=== PATIENT | female | born 1940 | race Asian ===

== ENCOUNTER 2017-07-04 11:03 | Inpatient (IN) | payer OTHER ==
[~2017-07-04] VITALS: Ht 157.5 cm; Wt 62.8 kg
[~2017-07-04 11:03] MED LIST: AML5T PO; ASCOCRY2 OR; ASPI81CH58 PO; CAR3125T OR; FER325T PO; INSLANTI SC; INSUINJ49 SC; LOVA20TA4 PO; OMEG100078 PO; POTA10TA51 PO; TRAM50TA2 PO
[2017-07-04] MEDS ORDERED: MORPHINE SULFATE 4 MG/ML SYR/VIAL IV ONE (11:15)
[2017-07-04] MEDS ORDERED: ONDANSETRON HCL 4 MG/2 ML VIAL IV ONE (11:15)
[2017-07-04 11:43] LABS: Basophils # (auto) 0.1 uL; Eosinophils # (auto) 0.3 uL; Mean Corpuscular Volume 108.6 fL (80.0-100.0); Neutrophils % (auto) 85.6 % (37.0-80.0)
[2017-07-04 11:47] LABS: Basophils % (auto) 0.4 % (0.0-2.0); Eosinophils % (auto) 1.7 % (0.0-7.0); Hematocrit 19.1 % (36.0-46.0); Lymphocytes # (auto) 1.9 uL; Lymphocytes % (auto) 9.4 % (10.0-50.0); Mean Corpuscular Hemoglobin 34.2 pg (28.0-32.0); Mean Corpuscular Hgb Conc. 31.5 g/dL (32.0-36.0); Monocytes # (auto) 0.6 uL; Monocytes % (auto) 2.9 % (0.0-12.0); Neutrophils # (auto) 17.6 uL; Platelet Count (auto) 290 10^3/uL (140-450); Red Blood Cells 1.76 10^6/uL (4.0-5.20); White Blood Cell 20.6 10^3/uL (4.4-10.8)
[2017-07-04 11:58] LABS: INR 0.88 (0.9-1.15); Prothrombin Time 9.6 sec (9.37-12.3)
[2017-07-04 12:12] LABS: Albumin 2.9 g/dL (3.4-5.0); BUN/Creatinine Ratio 15.8; Bilirubin, Total 0.5 mg/dL (0.2-1.0); Calcium 8.4 mg/dL (8.5-10.1); Magnesium 3.2 mg/dL (1.6-2.6); Potassium 5.5 mmol/L (3.5-5.1); Total Protein 7.8 g/dL (6.4-8.2)
[2017-07-04] MEDS ORDERED: FUROSEMIDE 40 MG/4 ML VIAL IV ONE (12:15)
[2017-07-04] MEDS ORDERED: ZOLPIDEM TARTRATE 5 MG TAB PO PRN (13:30)
[2017-07-04] MEDS ORDERED: ONDANSETRON HCL 4 MG/2 ML VIAL IV PRN (13:30)
[2017-07-04] MEDS ORDERED: MORPHINE SULFATE 4 MG/ML SYR/VIAL IV PRN ×2 (13:30)
[2017-07-04] MEDS ORDERED: LORazepam 0.5 MG TAB PO PRN (13:30)
[2017-07-04] MEDS ORDERED: DEXTROSE (50%) 50ML SYRG IV PRN (13:30)
[2017-07-04] MEDS ORDERED: ALUM & MAG HYDROX-SIMETH LIQ(MAALOX) 30 ML PO ONE (13:30)
[2017-07-04] MEDS ORDERED: NITROGLYCERIN 0.4 MG SL TAB SL PRN ×2 (13:30)
[2017-07-04] MEDS ORDERED: traMADol HCL 50 MG TAB PO PRN ×2 (13:30→13:45)
[2017-07-04] MEDS: SODIUM CHLOR 0.9% PF (SALINE LOCK) 10ML VIAL IV SCH ×2 (13:44→22:45)
[2017-07-04] MEDS ORDERED: cefTRIAXone 1GM/10ml IVPUSH 10 ML IV ONE (13:45)
[2017-07-04] MEDS ORDERED: ACETYLCYSTEINE ORAL for CIN 20%(200MG/ML) 4ML PO ONE (13:45)
[2017-07-04] MEDS ORDERED: amLODIPine BESYLATE 5 MG TAB PO ONE (13:45)
[2017-07-04 14:45] VITALS: BP 155/62
[2017-07-04 15:00] VITALS: BP 163/65
[2017-07-04 15:07] LABS: Urine Bacteria FEW /hpf (None Seen); Urine Blood Negative /uL (Negative); Urine Specific Gravity 1.008 (1.001-1.035); Urine WBC 1 /hpf (0 - 5)
[2017-07-04 16:45] VITALS: BP 171/72
[2017-07-04 17:10] VITALS: BP 172/73
[2017-07-04] MEDS: ACCU-CHEK COMFORT CURVE STRIP VI SCH ×2 (17:19→22:24)
[2017-07-04] MEDS: INSULIN 70/30 1unit/0.01ml Susp (100units/ml) SC SCH (17:19)
[2017-07-04] MEDS: InsuLIN REG 1unit/0.01ml Soln (100units/ml) SC SCH ×2 (17:19→22:48)
[2017-07-04 17:22] VITALS: BP 177/73
[2017-07-04 17:33] VITALS: BP 176/77
[2017-07-04] MEDS: Boost Glucose Control 8 Ounces PO SCH (18:24)
[2017-07-04] MEDS: cloNIDine HCL 0.1 MG TAB PO PRN (18:41)
[2017-07-04 21:30] LABS: Hemoglobin 9.4 g/dL (12.2-16.2)
[2017-07-04] MEDS: CARVEDILOL 3.125 MG TAB PO SCH (22:47)
[2017-07-04] MEDS: ATORVASTATIN 20 MG TAB PO SCH (22:48)
[2017-07-04] MEDS: ACETYLCYSTEINE ORAL for CIN 20%(200MG/ML) 4ML PO SCH (22:48)
[2017-07-05 04:22] VITALS: BP 153/59
[2017-07-05 04:26] VITALS: BP 153/59
[2017-07-05] MEDS: ACCU-CHEK COMFORT CURVE STRIP VI SCH ×4 (05:45→22:01)
[2017-07-05] MEDS: SODIUM CHLOR 0.9% PF (SALINE LOCK) 10ML VIAL IV SCH ×3 (05:45→22:00)
[2017-07-05 05:56] LABS: Basophils # (auto) 0.1 uL; Basophils % (auto) 0.5 % (0.0-2.0); Eosinophils # (auto) 0.2 uL; Eosinophils % (auto) 1.6 % (0.0-7.0); Hematocrit 26.8 % (36.0-46.0); Hemoglobin 8.9 g/dL (12.2-16.2); Lymphocytes # (auto) 1.6 uL; Lymphocytes % (auto) 10.8 % (10.0-50.0); Mean Corpuscular Hemoglobin 32.2 pg (28.0-32.0); Mean Corpuscular Hgb Conc. 33.3 g/dL (32.0-36.0); Mean Corpuscular Volume 96.7 fL (80.0-100.0); Monocytes # (auto) 0.8 uL; Monocytes % (auto) 5.3 % (0.0-12.0); Neutrophils # (auto) 11.9 uL; Neutrophils % (auto) 81.8 % (37.0-80.0); Platelet Count (auto) 221 10^3/uL (140-450); Red Blood Cells 2.78 10^6/uL (4.0-5.20); White Blood Cell 14.5 10^3/uL (4.4-10.8)
[2017-07-05 05:59] LABS: Red Cell Distribution Width 20.4 % (11.8-14.3)
[2017-07-05 06:19] LABS: Albumin 2.5 g/dL (3.4-5.0); BUN/Creatinine Ratio 16.9; Bilirubin, Total 0.6 mg/dL (0.2-1.0); Calcium 8.1 mg/dL (8.5-10.1); Magnesium 2.9 mg/dL (1.6-2.6); Phosphorus 3.6 mg/dL (2.5-4.90); Potassium 5.2 mmol/L (3.5-5.1); Total Protein 7.1 g/dL (6.4-8.2)
[2017-07-05] MEDS: INSULIN LANTUS (GLARGINE) 1 /0.01ml (100units/ml) SC SCH (06:19)
[2017-07-05] MEDS: INSULIN 70/30 1unit/0.01ml Susp (100units/ml) SC SCH ×3 (06:19→17:00)
[2017-07-05] MEDS: InsuLIN REG 1unit/0.01ml Soln (100units/ml) SC SCH ×4 (06:19→22:01)
[2017-07-05] MEDS ORDERED: cefTRIAXone 1GM/10ml IVPUSH 10 ML IV SCH (09:00)
[2017-07-05] MEDS: Boost Glucose Control 8 Ounces PO SCH ×3 (10:11→17:44)
[2017-07-05] MEDS: FERROUS SULFATE 325 MG TAB PO SCH (10:12)
[2017-07-05] MEDS: DOCUSATE SOD 100 MG CAP PO SCH (10:13)
[2017-07-05] MEDS: CARVEDILOL 3.125 MG TAB PO SCH (10:13)
[2017-07-05] MEDS: ASCORBIC ACID 500 MG TAB PO SCH (10:13)
[2017-07-05] MEDS: amLODIPine BESYLATE 5 MG TAB PO SCH (10:14)
[2017-07-05] MEDS: ACETYLCYSTEINE ORAL for CIN 20%(200MG/ML) 4ML PO SCH (11:12)
[2017-07-05] MEDS: cloNIDine HCL 0.1 MG TAB PO PRN (11:39)
[2017-07-05] MEDS ORDERED: EPOETIN ALFA 10,000 UNIT/1 ML VIAL SC ONE (12:15)
[2017-07-05 12:19] VITALS: BP 168/67
[2017-07-05 16:01] VITALS: BP 141/55
[2017-07-05 21:36] VITALS: BP 157/67
[2017-07-05] MEDS: CARVEDILOL 12.5 MG TAB PO SCH (22:00)
[2017-07-05] MEDS: ATORVASTATIN 20 MG TAB PO SCH (22:01)
[2017-07-06] MEDS: cloNIDine HCL 0.1 MG TAB PO PRN (04:27)
[2017-07-06] MEDS: ACETAMINOPHEN 325 MG TAB PO PRN ×3 (04:30→22:21)
[2017-07-06 05:01] VITALS: BP 167/71
[2017-07-06 05:54] LABS: Basophils # (auto) 0.1 uL; Basophils % (auto) 0.6 % (0.0-2.0); Eosinophils # (auto) 0.4 uL; Eosinophils % (auto) 3.9 % (0.0-7.0); Hematocrit 26.6 % (36.0-46.0); Hemoglobin 8.9 g/dL (12.2-16.2); Lymphocytes # (auto) 1.5 uL; Lymphocytes % (auto) 14.1 % (10.0-50.0); Mean Corpuscular Hemoglobin 32.9 pg (28.0-32.0); Mean Corpuscular Hgb Conc. 33.6 g/dL (32.0-36.0); Mean Corpuscular Volume 97.9 fL (80.0-100.0); Monocytes # (auto) 0.7 uL; Monocytes % (auto) 6.5 % (0.0-12.0); Neutrophils # (auto) 7.9 uL; Neutrophils % (auto) 74.9 % (37.0-80.0); Platelet Count (auto) 197 10^3/uL (140-450); Red Blood Cells 2.71 10^6/uL (4.0-5.20); White Blood Cell 10.6 10^3/uL (4.4-10.8)
[2017-07-06 05:57] LABS: Red Cell Distribution Width 20.7 % (11.8-14.3)
[2017-07-06] MEDS: SODIUM CHLOR 0.9% PF (SALINE LOCK) 10ML VIAL IV SCH ×3 (06:25→22:00)
[2017-07-06] MEDS: InsuLIN REG 1unit/0.01ml Soln (100units/ml) SC SCH ×4 (06:25→22:17)
[2017-07-06] MEDS: ACCU-CHEK COMFORT CURVE STRIP VI SCH ×4 (06:26→22:17)
[2017-07-06] MEDS: INSULIN 70/30 1unit/0.01ml Susp (100units/ml) SC SCH ×3 (06:28→17:00)
[2017-07-06 06:29] LABS: BUN/Creatinine Ratio 17.5; Calcium 8.3 mg/dL (8.5-10.1); Potassium 5.1 mmol/L (3.5-5.1)
[2017-07-06] MEDS: INSULIN LANTUS (GLARGINE) 1 /0.01ml (100units/ml) SC SCH (06:36)
[2017-07-06] MEDS: Boost Glucose Control 8 Ounces PO SCH ×3 (08:06→18:20)
[2017-07-06 08:23] VITALS: BP 152/67
[2017-07-06] MEDS: ASCORBIC ACID 500 MG TAB PO SCH (10:14)
[2017-07-06] MEDS: DOCUSATE SOD 100 MG CAP PO SCH (10:14)
[2017-07-06] MEDS: FERROUS SULFATE 325 MG TAB PO SCH (10:14)
[2017-07-06] MEDS: CARVEDILOL 12.5 MG TAB PO SCH ×2 (10:16→22:16)
[2017-07-06] MEDS: amLODIPine BESYLATE 5 MG TAB PO SCH (10:17)
[2017-07-06 11:18] VITALS: BP 160/62
[2017-07-06] MEDS ORDERED: EPOETIN ALFA 10,000 UNIT/1 ML VIAL SC ONE (14:15)
[2017-07-06 14:24] LABS: Basophils # (auto) 0.1 uL; Eosinophils # (auto) 0.4 uL; Monocytes # (auto) 0.7 uL; Neutrophils # (auto) 7.6 uL; White Blood Cell 10.1 10^3/uL (4.4-10.8)
[2017-07-06 14:27] LABS: Basophils % (auto) 0.7 % (0.0-2.0); Eosinophils % (auto) 3.7 % (0.0-7.0); Hematocrit 23.6 % (36.0-46.0); Lymphocytes # (auto) 1.3 uL; Mean Corpuscular Hemoglobin 33.3 pg (28.0-32.0); Mean Corpuscular Hgb Conc. 33.8 g/dL (32.0-36.0); Mean Corpuscular Volume 98.4 fL (80.0-100.0); Monocytes % (auto) 6.8 % (0.0-12.0); Neutrophils % (auto) 75.8 % (37.0-80.0); Platelet Count (auto) 181 10^3/uL (140-450)
[2017-07-06 14:32] LABS: Red Cell Distribution Width 20.8 % (11.8-14.3)
[2017-07-06] MEDS ORDERED: EPOETIN ALFA 10,000 UNIT/1 ML VIAL IV ONE ×2 (15:45→18:15)
[2017-07-06 17:31] VITALS: BP 153/64
[2017-07-06] MEDS ORDERED: FER325T PO (17:45)
[2017-07-06] MEDS ORDERED: HYDR25TA35 PO (17:45)
[2017-07-06] MEDS ORDERED: ATOR20TA50 PO (17:45)
[2017-07-06] MEDS ORDERED: OMEP20TA PO (17:45)
[2017-07-06] MEDS ORDERED: CAR125T PO (17:45)
[2017-07-06 22:00] VITALS: BP 169/66
[2017-07-06] MEDS: ATORVASTATIN 20 MG TAB PO SCH (22:14)
[2017-07-06] MEDS: hydrALAZINE HCL 25 MG TAB PO SCH (22:15)
[2017-07-07 04:46] VITALS: BP 143/63
[2017-07-07] MEDS: SODIUM CHLOR 0.9% PF (SALINE LOCK) 10ML VIAL IV SCH ×2 (06:00→14:00)
[2017-07-07] MEDS: INSULIN LANTUS (GLARGINE) 1 /0.01ml (100units/ml) SC SCH (06:48)
[2017-07-07] MEDS: InsuLIN REG 1unit/0.01ml Soln (100units/ml) SC SCH ×3 (06:48→17:00)
[2017-07-07] MEDS: INSULIN 70/30 1unit/0.01ml Susp (100units/ml) SC SCH ×3 (06:48→17:00)
[2017-07-07] MEDS: ACCU-CHEK COMFORT CURVE STRIP VI SCH ×3 (06:48→17:00)
[2017-07-07 08:00] VITALS: BP 166/69
[2017-07-07] MEDS ORDERED: EPOETIN ALFA 10,000 UNIT/1 ML VIAL SC ONE (08:00)
[2017-07-07] MEDS: Boost Glucose Control 8 Ounces PO SCH (08:57)
[2017-07-07] MEDS: CARVEDILOL 12.5 MG TAB PO SCH (09:32)
[2017-07-07] MEDS: ACETAMINOPHEN 325 MG TAB PO PRN (09:32)
[2017-07-07] MEDS: hydrALAZINE HCL 25 MG TAB PO SCH (09:38)
[2017-07-07] MEDS: amLODIPine BESYLATE 5 MG TAB PO SCH (09:38)
[2017-07-07] MEDS: FERROUS SULFATE 325 MG TAB PO SCH (10:19)
[2017-07-07] MEDS: ASCORBIC ACID 500 MG TAB PO SCH (10:19)
[2017-07-07] MEDS: DOCUSATE SOD 100 MG CAP PO SCH (10:20)
[2017-07-07 10:29] LABS: Hepatitis B Surface Antibody Negative
[2017-07-07] MEDS: cloNIDine HCL 0.1 MG TAB PO PRN (10:40)
[2017-07-07 10:48] LABS: Hepatitis B Surface Antigen Negative (Negative)
[2017-07-07 11:02] LABS: Hepatitis C Antibody Negative (Negative)
[2017-07-07] MEDS ORDERED: Boost Glucose Control 8 Ounces PO SCH (12:00)
[2017-07-07 12:54] VITALS: BP 156/55
[2017-07-07 13:00] VITALS: BP 166/65
[2017-07-07 13:14] VITALS: BP 156/55
[2017-07-07 16:54] VITALS: BP 143/62
[2017-07-07] MEDS ORDERED: Suplena 8 ounce PO SCH (18:00)
== END 2017-07-07 18:55 | disposition home health service (06) | DRG 280 ==
LOC: ER 11:03 → EDBD 11:03 → TELE 11:04 → DOU IN ICU 07-05 03:23 → EAST 07-05 18:41 → TELE-EAST 07-06 06:00
PROVIDERS: ADMIT Internal Medicine; ATTEND Hospitalist
PROC: 30233N1 Transfusion of Nonautologous Red Blood Cells into Peripheral Vein, Percutaneous Approach (ICD-10-PCS; principal; 2017-07-04)
DX: I21.4 Non-ST elevation (NSTEMI) myocardial infarction (principal); N18.6 End stage renal disease; E44.0 Moderate protein-calorie malnutrition; I13.2 Hypertensive heart and chronic kidney disease with heart failure and with stage 5 chronic kidney disease, or end stage renal disease; I50.33 Acute on chronic diastolic (congestive) heart failure; E11.21 Type 2 diabetes mellitus with diabetic nephropathy; E87.5 Hyperkalemia; E78.5 Hyperlipidemia, unspecified; E11.22 Type 2 diabetes mellitus with diabetic chronic kidney disease; E83.41 Hypermagnesemia; E83.51 Hypocalcemia; I25.10 Atherosclerotic heart disease of native coronary artery without angina pectoris; I25.2 Old myocardial infarction; J44.9 Chronic obstructive pulmonary disease, unspecified; K21.9 Gastro-esophageal reflux disease without esophagitis; Z82.49 Family history of ischemic heart disease and other diseases of the circulatory system; Z83.3 Family history of diabetes mellitus; Z86.73 Personal history of transient ischemic attack (TIA), and cerebral infarction without residual deficits; D63.1 Anemia in chronic kidney disease; Z88.5 Allergy status to narcotic agent; Z88.2 Allergy status to sulfonamides; Z90.49 Acquired absence of other specified parts of digestive tract; Z68.25 Body mass index [BMI] 25.0-25.9, adult
CPT/HCPCS: 36415; 51702; 71045; 80048; 80053; 80061; 81001; 82962; 83010; 83036; 83615; 83735; 83880; 84100; 84484; 85014; 85018; 85025; 85610; 85730; 86706; 86803; 86850; 86880; 86900; 86901; 86920; 87081; 87086; 87340; 93005; 93306; 96361; 96374; 96375; 97116; 97530; 99291; J0885; J1815; J2405

== ENCOUNTER 2017-12-25 15:44 | Emergency (ER) | payer OTHER ==
[~2017-12-25] VITALS: Ht 157.5 cm; Wt 59.9 kg
[~2017-12-25 15:44] MED LIST changes: +ALLO100T PO; -ASCOCRY2 OR; +ATOR20TA50 PO; +CAR125T PO; -CAR3125T OR; +CARV6.2551 PO; +CHOL1TAB42 PO; +FURO20TA PO; +GABA300C10 PO; +HYDR-4296 PO; -INSLANTI SC; +INSLISPI SC; -INSUINJ49 SC; -LOVA20TA4 PO; +LOVA40TA72 PO; +MIN25T PO; -OMEG100078 PO; +OMEP20TA PO; +ONDA4TAB5 PO; -POTA10TA51 PO; -TRAM50TA2 PO
[2017-12-25 16:50] LABS: Basophils # (auto) 0.1 uL; Basophils % (auto) 0.9 % (0.0-2.0); Eosinophils # (auto) 0.3 uL; Eosinophils % (auto) 2.4 % (0.0-7.0); Hematocrit 35.6 % (36.0-46.0); Hemoglobin 11.1 g/dL (12.2-16.2); Lymphocytes # (auto) 1.8 uL; Lymphocytes % (auto) 14.5 % (10.0-50.0); Mean Corpuscular Hemoglobin 29.8 pg (28.0-32.0); Mean Corpuscular Hgb Conc. 31.3 g/dL (32.0-36.0); Mean Corpuscular Volume 95.1 fL (80.0-100.0); Monocytes # (auto) 0.6 uL; Monocytes % (auto) 4.6 % (0.0-12.0); Neutrophils # (auto) 9.4 uL; Neutrophils % (auto) 77.6 % (37.0-80.0); Platelet Count (auto) 345 10^3/uL (140-450); Red Blood Cells 3.74 10^6/uL (4.0-5.20); Red Cell Distribution Width 16.1 % (11.8-14.3); White Blood Cell 12.1 10^3/uL (4.4-10.8)
[2017-12-25 17:27] LABS: Alanine Aminotransferase 16 U/L (13-56); Albumin 3.4 g/dL (3.4-5.0); Alkaline Phosphatase 137 U/L (45-117); Anion Gap 4 (5-15); Aspartate Aminotransferase 15 U/L (15-37); BUN/Creatinine Ratio 9.3; Bilirubin, Total 0.4 mg/dL (0.2-1.0); Blood Urea Nitrogen 50 mg/dL (7-18); Calcium 8.9 mg/dL (8.5-10.1); Carbon Dioxide 28 mmol/L (21-32); Chloride 104 mmol/L (98-107); GFR African American 10 mL/min; GFR Non-African American 8 mL/min; Glucose 135 mg/dL (74-106); Magnesium 3.1 mg/dL (1.6-2.6); Potassium 3.6 mmol/L (3.5-5.1); Sodium 136 mmol/L (136-145); Total Protein 7.6 g/dL (6.4-8.2)
[2017-12-25 20:11] VITALS: BP 135/61
[2017-12-25] MEDS ORDERED: HYDROcodone-ACET 5/325MG TAB PO ONE (20:15)
== END 2017-12-25 22:41 | disposition home or self-care (01) ==
LOC: ER 15:44
DX: S83.92XA Sprain of unspecified site of left knee, initial encounter (principal); S00.83XA Contusion of other part of head, initial encounter; S90.32XA Contusion of left foot, initial encounter; E11.22 Type 2 diabetes mellitus with diabetic chronic kidney disease; I13.2 Hypertensive heart and chronic kidney disease with heart failure and with stage 5 chronic kidney disease, or end stage renal disease; N18.6 End stage renal disease; J44.9 Chronic obstructive pulmonary disease, unspecified; K21.9 Gastro-esophageal reflux disease without esophagitis; E78.5 Hyperlipidemia, unspecified; I25.2 Old myocardial infarction; Z90.49 Acquired absence of other specified parts of digestive tract; Z99.2 Dependence on renal dialysis; Z79.4 Long term (current) use of insulin; W19.XXXA Unspecified fall, initial encounter; Y93.89 Activity, other specified; Y92.098 Other place in other non-institutional residence as the place of occurrence of the external cause; Y99.8 Other external cause status
CPT/HCPCS: 36415; 70450; 70486; 73562; 80053; 83735; 84484; 85025; 93005

== ENCOUNTER 2018-09-27 13:46 | Emergency (ER) | payer OTHER ==
[~2018-09-27] VITALS: Ht 152.4 cm; Wt 72.6 kg
[2018-09-27 14:50] LABS: Basophils # (auto) 0.1 uL; Eosinophils # (auto) 0.4 uL; Lymphocytes # (auto) 1.4 uL; Mean Corpuscular Hgb Conc. 30.7 g/dL (32.0-36.0); Nucleated Red Blood Cells % 0.1 %; White Blood Cell 10.3 10^3/uL (4.4-10.8)
[2018-09-27 14:53] LABS: Basophils % (auto) 0.5 % (0.0-2.0); Eosinophils % (auto) 3.7 % (0.0-7.0); Hematocrit 26.1 % (36.0-46.0); Lymphocytes % (auto) 14.1 % (10.0-50.0); Mean Corpuscular Hemoglobin 29.4 pg (28.0-32.0); Mean Corpuscular Volume 95.7 fL (80.0-100.0); Monocytes # (auto) 0.5 uL; Monocytes % (auto) 4.6 % (0.0-12.0); Neutrophils # (auto) 7.9 uL; Neutrophils % (auto) 77.1 % (37.0-80.0); Platelet Count (auto) 257 10^3/uL (140-450); Red Blood Cells 2.73 10^6/uL (4.0-5.20); Red Cell Distribution Width 19.4 % (11.8-14.3)
[2018-09-27 15:05] LABS: BUN/Creatinine Ratio 8.7; Magnesium 2.9 mg/dL (1.6-2.6); Potassium 3.7 mmol/L (3.5-5.1)
[2018-09-27 15:10] LABS: Bilirubin, Total 0.6 mg/dL (0.2-1.0); Total Protein 6.5 g/dL (6.4-8.2)
[2018-09-27] MEDS ORDERED: HYDROcodone-ACET 10/325MG TAB PO ONE (20:15)
[2018-09-27 20:46] VITALS: BP 131/49
[2018-09-27] MEDS ORDERED: SODIUM CHLORIDE 0.9% 1,000 ML IV ONE ×2 (21:00)
== END 2018-09-27 21:22 | disposition short-term general hospital (02) ==
LOC: EDBD 13:46 → EDUNIT# 13:46 → ER 14:05
DX: S06.6X9A Traumatic subarachnoid hemorrhage with loss of consciousness of unspecified duration, initial encounter (principal); E11.22 Type 2 diabetes mellitus with diabetic chronic kidney disease; I13.2 Hypertensive heart and chronic kidney disease with heart failure and with stage 5 chronic kidney disease, or end stage renal disease; I50.9 Heart failure, unspecified; N18.6 End stage renal disease; K21.9 Gastro-esophageal reflux disease without esophagitis; E78.5 Hyperlipidemia, unspecified; Z90.49 Acquired absence of other specified parts of digestive tract; Z99.2 Dependence on renal dialysis; Z79.4 Long term (current) use of insulin; W18.31XA Fall on same level due to stepping on an object, initial encounter; Y93.89 Activity, other specified; Y92.89 Other specified places as the place of occurrence of the external cause; Y99.8 Other external cause status
CPT/HCPCS: 36415; 70450; 72125; 80053; 82962; 83735; 84484; 85025; 93005; 99291; J7030

== ENCOUNTER 2020-02-28 12:19 | Emergency (ER) | payer OTHER ==
[~2020-02-28] VITALS: Ht 157.5 cm; Wt 68.0 kg
[2020-02-28 12:19] VITALS: BP 141/71
[~2020-02-28 12:19] MED LIST changes: +FURO1TAB33 PO; -FURO20TA PO; +ONDA-144 PO; -ONDA4TAB5 PO
[2020-02-28] MEDS ORDERED: ACETAMINOPHEN 325 MG TAB PO ONE (14:15)
== END 2020-02-28 14:18 | disposition home or self-care (01) ==
LOC: EDBD 12:19 → ER 12:19
DX: S46.911A Strain of unspecified muscle, fascia and tendon at shoulder and upper arm level, right arm, initial encounter (principal); M19.011 Primary osteoarthritis, right shoulder; I13.2 Hypertensive heart and chronic kidney disease with heart failure and with stage 5 chronic kidney disease, or end stage renal disease; I50.9 Heart failure, unspecified; E11.22 Type 2 diabetes mellitus with diabetic chronic kidney disease; N18.6 End stage renal disease; K21.9 Gastro-esophageal reflux disease without esophagitis; Z90.49 Acquired absence of other specified parts of digestive tract; Z79.82 Long term (current) use of aspirin; Z79.899 Other long term (current) drug therapy; Z88.2 Allergy status to sulfonamides; Z88.5 Allergy status to narcotic agent; W19.XXXA Unspecified fall, initial encounter; Y93.89 Activity, other specified; Y92.89 Other specified places as the place of occurrence of the external cause; Y99.8 Other external cause status
CPT/HCPCS: 73030

== ENCOUNTER 2020-02-28 14:56 | Inpatient (IN) | payer OTHER ==
[~2020-02-28] VITALS: Ht 157.5 cm; Wt 59.6 kg
[2020-02-28] MEDS ORDERED: SODIUM CHLORIDE 0.9% 500 ML IV ONE (15:45)
[2020-02-28 17:49] LABS: Basophils # (auto) 0 10 ^3/uL (0-0.2); Eosinophils # (auto) 0 10 ^3/uL (0-0.8); Hemoglobin 7.8 g/dL (12.2-16.2); Monocytes # (auto) 0.6 10 ^3/uL (0-1.3); Neutrophils # (auto) 2.9 10 ^3/uL (1.6-8.6); Platelet Count (auto) 262 10^3/uL (140-450); White Blood Cell 4.5 10^3/uL (4.4-10.8)
[2020-02-28 17:51] LABS: Basophils % (auto) 0.6 % (0.0-2.0); Eosinophils % (auto) 0.4 % (0.0-7.0); Hematocrit 26.2 % (36.0-46.0); Lymphocytes # (auto) 0.9 10 ^3/uL (0.4-5.4); Lymphocytes % (auto) 20.6 % (10.0-50.0); Mean Corpuscular Hgb Conc. 29.8 g/dL (32.0-36.0); Monocytes % (auto) 13.3 % (0.0-12.0); Neutrophils % (auto) 65.1 % (37.0-80.0); Nucleated Red Blood Cells % 0.2 %; Red Blood Cells 3.01 10^6/uL (4.0-5.20)
[2020-02-28 17:53] LABS: Red Cell Distribution Width 21.9 % (11.8-14.3)
[2020-02-28 18:08] LABS: Albumin 2.6 g/dL (3.4-5.0); BUN/Creatinine Ratio 6.9; Calcium 6.6 mg/dL (8.5-10.1)
[2020-02-28 18:10] LABS: INR 1.1 (0.9-1.15); Partial Thromboplastin Time 44.1 sec (23.0-31.2)
[2020-02-28 18:13] LABS: Total Protein 6.4 g/dL (6.4-8.2)
[2020-02-28] MEDS ORDERED: ASPirin 81 mg TAB PO ONE (18:30)
[2020-02-28] MEDS ORDERED: PANTOPRAZOLE 40 MG/10 ML VIAL INJ IV ONE (19:45)
[2020-02-28] MEDS ORDERED: NITROGLYCERIN 0.4 MG SL TAB SL PRN (23:00)
[2020-02-28] MEDS ORDERED: MORPHINE SULF INJ 2 MG/ML SYRINGE 1ML IV PRN (23:00)
[2020-02-28] MEDS ORDERED: DOCUSATE SOD 100 MG CAP PO PRN (23:00)
[2020-02-28] MEDS ORDERED: ONDANSETRON HCL 4 MG/2 ML VIAL IV PRN (23:00)
[2020-02-28] MEDS ORDERED: DEXTROSE (50%) 50ML SYRG IV PRN (23:15)
[2020-02-29] MEDS: InsuLIN REG 1unit/0.01ml Soln (100units/ml) SC SCH ×7 (00:25→23:54)
[2020-02-29] MEDS: ACCU-CHEK COMFORT CURVE STRIP VI SCH ×7 (00:25→23:53)
[2020-02-29] MEDS: SODIUM CHLOR 0.9% PF (SALINE LOCK) 10ML VIAL/SYR IV SCH ×3 (06:18→22:15)
[2020-02-29 09:16] LABS: Basophils # (auto) 0 10 ^3/uL (0-0.2); Eosinophils # (auto) 0.1 10 ^3/uL (0-0.8); Hemoglobin 7.5 g/dL (12.2-16.2); Monocytes # (auto) 0.5 10 ^3/uL (0-1.3); Neutrophils # (auto) 3.5 10 ^3/uL (1.6-8.6)
[2020-02-29 09:18] LABS: Basophils % (auto) 0.4 % (0.0-2.0); Eosinophils % (auto) 2.7 % (0.0-7.0); Hematocrit 25.1 % (36.0-46.0); Lymphocytes # (auto) 0.8 10 ^3/uL (0.4-5.4); Lymphocytes % (auto) 15.8 % (10.0-50.0); Mean Corpuscular Hgb Conc. 29.8 g/dL (32.0-36.0); Mean Corpuscular Volume 87.4 fL (80.0-100.0); Monocytes % (auto) 10.7 % (0.0-12.0); Neutrophils % (auto) 70.4 % (37.0-80.0); Platelet Count (auto) 257 10^3/uL (140-450); Red Blood Cells 2.87 10^6/uL (4.0-5.20); White Blood Cell 4.9 10^3/uL (4.4-10.8)
[2020-02-29 09:28] LABS: Red Cell Distribution Width 21.6 % (11.8-14.3)
[2020-02-29 09:30] LABS: Potassium 3.9 mmol/L (3.5-5.1)
[2020-02-29 09:40] LABS: Albumin 2.3 g/dL (3.4-5.0); BUN/Creatinine Ratio 7.5; Bilirubin, Total 0.8 mg/dL (0.2-1.0); Calcium 6.8 mg/dL (8.5-10.1); Total Protein 5.8 g/dL (6.4-8.2)
[2020-02-29] MEDS: FAMOTIDINE 20 MG TAB PO SCH (10:02)
[2020-02-29] MEDS: ZINC SULFATE 220mg CAP or TAB PO SCH (10:02)
[2020-02-29] MEDS: ASCORBIC ACID 500 MG TAB PO SCH ×2 (10:02→22:15)
[2020-02-29] MEDS: HEPARIN SODIUM (PORCINE) 5000 UNITS/ML 1ML VIAL SC SCH ×2 (10:02→22:16)
[2020-02-29] MEDS: MULTIPLE VITAMIN TAB PO SCH (10:02)
--- NOTE | 2020-02-29 16:19 | NUR ---
Assessment Patient is a 79 year old female, who is alert and oriented. Patient cognitive abilities are intact. Patient states that she can do all ADL's and walk independently, patient recently has fallen and states that she is unstable on her feet. Patient has health history of diabetes and dialysis treatment. Patient chair time for dialysis is Tuesday,Tuesday and Tuesday. Patient is retired, she lives alone and receives halfway and social security as income. Patient has plans to return home post discharge. Patient does not have transportation for post discharge. Patient has a son who lives in [facility], who is suffering from his illness of leukemia. Patient states that she does not have a support system. Patient is receptive to receive Advance Directive forms. Discharge planning: Patient has orders for SNF, patient will benefit from physical therapy evaluation for SNF. Patient will resume dialysis therapy on Tuesday, Tuesday, and Tuesday post discharge. ENRIQUE has faxed information to [facility] for SNF transfer 03/01/2020. ENRIQUE contact Glenny at [facility], waiting for acceptance from [facility]. will provide Advance Directive forms to patient. Addendum: 02/29/20 at 1634 by MAY ROCK Amended: Links added.
[2020-02-29 16:21] VITALS: BP 152/60
[2020-02-29 17:00] VITALS: BP 152/60
--- NOTE | 2020-02-29 19:28 | NUR ---
RECEIVED PATIENT FROM DAY SHIFT RN. PATIENT RESTING IN BED. NO S/S OF DISTRESS NOTED. DENIED PAIN FOR NOW. ASSISTED PATIENT FOR BEDPAN. PATIENT TOLERATED WELL. POC INSTRUCTED AND ENCOURAGED PATIENT TO CALL FOR SWEATER DESIGNER IF NEEDED. BED IN LOWEST POSITION WITH SIDE RAILS UP X 2. CALL JOLLEY WITHIN REACH. ALARM ON. CONTINUE TO MONITOR FOR CHANGES Q1H AND PRN.
[2020-02-29 22:00] VITALS: BP 152/70
--- NOTE | 2020-02-29 23:51 | NUR ---
COVID SWAB COLLECTED AND SENT TO LAB. CONTINUE TO MONITOR.
--- NOTE | 2020-03-01 00:30 | NUR ---
ACCU-CHECK, BS 165. INSULIN GIVEN ORDERED. CONTINUE TO MONITOR.
--- NOTE | 2020-03-01 01:00 | NUR ---
RECEIVED RESULT FROM LAB, PATIENT COVID POSITIVE. CHARGE NURSE ROBIN WILKERSON. WILL TRANSFER PATIENT TO COVID UNIT. CONTINUE TO MONITOR.
--- NOTE | 2020-03-01 01:16 | NUR ---
REPORT GIVEN TO MATY AGRAWAL. PATIENT WILL GO TO 244 BED 6. CONTINUE TO MONITOR.
--- NOTE | 2020-03-01 02:14 | NUR ---
PATIENT TRANSFERRED TO [facility], HANDED OVER TO NGHIA RUTLEDGE VIA WHEELCHAIR. PATIENT TOLERATED WELL. NO S/S OF DISTRESS NOTED.
--- NOTE | 2020-03-01 02:15 | NUR ---
assumed care of this patient at this time.
[2020-03-01] MEDS: InsuLIN REG 1unit/0.01ml Soln (100units/ml) SC SCH ×5 (03:50→20:04)
[2020-03-01] MEDS: ACCU-CHEK COMFORT CURVE STRIP VI SCH ×5 (03:50→20:03)
[2020-03-01 05:00] VITALS: BP 157/68
[2020-03-01] MEDS: SODIUM CHLOR 0.9% PF (SALINE LOCK) 10ML VIAL/SYR IV SCH ×3 (05:20→21:25)
[2020-03-01] MEDS: ACETAMINOPHEN 325 MG TAB PO PRN (05:47)
--- NOTE | 2020-03-01 07:00 | NUR ---
Respiratory note: O2 CHECK: HR 73, RR 14,SPO2 98%, BS DIMINISHED. NO SIGNS OR SYMPTOMS OF RESPIRATORY DISTRESS NOTED.
--- NOTE | 2020-03-01 07:05 | NUR ---
closing note pt is on 2lnc. no s/s of pain or discomfort. no respiratory distress noted. endorsed care to day shift RN Amber .
--- NOTE | 2020-03-01 08:00 | NUR ---
ASSESSMENT NOTE PT IS ALERT ORIENTEDX4, RESTING IN BED COMFORTABLY,NO DISTRESS NOTED,OXYGEN NC 2 L SAT AT 98 %, PAIN 0/10LIS WEAKNESS NOTED, ABLE TO SELF REPOSITION AND VERBALIS HER DEMANDS, PAIN 0/10, FALL RISK PRECAUTIONS, CALL LIGHT WITHIN REACH
[2020-03-01 09:00] VITALS: BP 132/61
[2020-03-01] MEDS: cefTRIAXone 1GM/50ML D5W 50 ML IV SCH (09:59)
[2020-03-01] MEDS: ASCORBIC ACID 500 MG TAB PO SCH ×2 (09:59→21:25)
[2020-03-01] MEDS: MULTIPLE VITAMIN TAB PO SCH (09:59)
[2020-03-01] MEDS: FAMOTIDINE 20 MG TAB PO SCH (09:59)
[2020-03-01] MEDS: ZINC SULFATE 220mg CAP or TAB PO SCH (09:59)
--- NOTE | 2020-03-01 10:00 | NUR ---
DR MCKENZIE AT BEDSIDE FOLLOWING UP ON PATIENT,ASKED PT IF SHE WANT TO GO HOME OR SNF,PT STATED< I WANT TO GO HOME >
[2020-03-01] MEDS: AZITHROMYCIN 500MG/ 250ML 250 ML IV SCH (10:37)
[2020-03-01 10:49] LABS: CRP High Sensitivity 4.02 mg/dL (< 0.3)
--- NOTE | 2020-03-01 10:50 | NUR ---
IN HOUSE COVID NASAL SWAPS COLLECTED,SENT TO LAB
--- NOTE | 2020-03-01 11:30 | NUR ---
DR SAMS AT BED SIDE FOLLOWING UP ON PT, MADE AWARE THAT THE NEPHROLOGY WAS CALLED
[2020-03-01 13:00] VITALS: BP 124/58
[2020-03-01] MEDS ORDERED: SODIUM CHL 0.9% 1000 ML BAG XX ONE (14:45)
--- NOTE | 2020-03-01 14:46 | NUR ---
DIALYSIS NURSE AT BED SIDE
--- NOTE | 2020-03-01 15:40 | NUR ---
PT TOLERATED DIALYSIS WELL,NO DISTRESS NOTED,WITH ONE LITER OUTPUT
[2020-03-01] MEDS: HEPARIN SODIUM (PORCINE) 5000 UNITS/ML 1ML VIAL SC SCH ×2 (16:11→21:26)
[2020-03-01 17:00] VITALS: BP 148/70
[2020-03-01] MEDS: CHOLECALCIFEROL (VITD3) 2,000 UNIT CAP PO SCH (17:01)
[2020-03-01] MEDS: DexAMETHasone INJECTION 6 MG in D5W 5% 50 ML IV SCH (17:12)
--- NOTE | 2020-03-01 18:45 | NUR ---
PT CONTINUE STABLE, NO DISTRESS NOTED, CONTINUE MONITORING, SITTING UP EATING DINNER
[2020-03-01 21:00] VITALS: BP 151/58
[2020-03-01] MEDS ORDERED: EPOETIN ALFA 10,000 UNIT/1 ML VIAL SC ONE (21:00)
[2020-03-02] MEDS: ACCU-CHEK COMFORT CURVE STRIP VI SCH ×6 (00:06→20:10)
[2020-03-02] MEDS: InsuLIN REG 1unit/0.01ml Soln (100units/ml) SC SCH ×6 (00:08→20:03)
[2020-03-02 05:00] VITALS: BP 138/60
[2020-03-02] MEDS: HEPARIN SODIUM (PORCINE) 5000 UNITS/ML 1ML VIAL SC SCH ×3 (06:12→22:14)
[2020-03-02] MEDS: SODIUM CHLOR 0.9% PF (SALINE LOCK) 10ML VIAL/SYR IV SCH ×3 (06:13→22:12)
--- NOTE | 2020-03-02 06:52 | NUR ---
closing note pt is resting in semi fowlers with the HOB at 30 degrees. pt is on 2Lnc. o2 saturation is 98%. endorsed care to day shift RN.
[2020-03-02] MEDS: cefTRIAXone 1GM/50ML D5W 50 ML IV SCH (08:46)
[2020-03-02 09:00] VITALS: BP 157/59
[2020-03-02] MEDS: ZINC SULFATE 220mg CAP or TAB PO SCH (09:23)
[2020-03-02] MEDS: MULTIPLE VITAMIN TAB PO SCH (09:23)
[2020-03-02] MEDS: FAMOTIDINE 20 MG TAB PO SCH (09:24)
[2020-03-02] MEDS: CHOLECALCIFEROL (VITD3) 2,000 UNIT CAP PO SCH (09:24)
[2020-03-02] MEDS: ASCORBIC ACID 500 MG TAB PO SCH ×2 (09:24→22:14)
[2020-03-02] MEDS ORDERED: MINOXIDIL 2.5 MG TAB PO SCH (09:30)
--- NOTE | 2020-03-02 09:44 | NUR ---
DR MCKENZIE AT BED SIDE, PT REQUESTED RENAGEL FOR HER KIDNEY, DR MCKENZIE ASSURE PT THAT HE WILL ORDER IT
[2020-03-02] MEDS: AZITHROMYCIN 500MG/ 250ML 250 ML IV SCH (09:46)
[2020-03-02] MEDS: hydrALAZINE HCL 25 MG TAB PO SCH ×2 (09:47→22:12)
[2020-03-02] MEDS: FERROUS SULFATE 325 MG TAB PO SCH (09:47)
[2020-03-02] MEDS: ASPirin 81 mg TAB PO SCH (09:47)
[2020-03-02] MEDS: CARVEDILOL 12.5 MG TAB PO SCH ×2 (09:48→22:13)
[2020-03-02] MEDS: amLODIPine BESYLATE 5 MG TAB PO SCH (09:48)
[2020-03-02] MEDS: ALLOPURINOL 100 MG TAB PO SCH (09:49)
--- NOTE | 2020-03-02 10:30 | NUR ---
PHYSICAL THERAPY AMBULATING PT IN THE HALLWAYS, WITH FRONT WHEEL WALKER, PT TOLERATED WELL
--- NOTE | 2020-03-02 12:10 | NUR ---
DIALYSIS NURSE AT BEDSIDE WITH A DIALYSIS TREATMENT FOR 90 MINUTES
[2020-03-02] MEDS: SEVELAMER 800 MG TAB PO SCH ×2 (12:57→18:54)
[2020-03-02 13:00] VITALS: BP 117/70
[2020-03-02] MEDS: DexAMETHasone INJECTION 6 MG in D5W 5% 50 ML IV SCH (16:39)
[2020-03-02 17:00] VITALS: BP 114/37
--- NOTE | 2020-03-02 18:00 | NUR ---
PATIENT'S SON CALLED FROM [place] TO TALK TO HIS MOM
--- NOTE | 2020-03-02 18:55 | NUR ---
PT CONTINUE STABLE, CONTINUE MONITORING
[2020-03-02 22:00] VITALS: BP 116/41
--- NOTE | 2020-03-02 22:00 | NUR ---
Respiratory note: PT SEEN AND ASSESSED AT THIS TIME, NO RESPIRATORY DISTRESS NOTED. HR 67 RR 16 SP02 97% ON 1L NASAL CANNULA.
[2020-03-02] MEDS: ATORVASTATIN 20 MG TAB PO SCH (22:13)
[2020-03-02] MEDS: GABAPENTIN 300 MG CAP PO SCH (22:14)
[2020-03-03] MEDS: ACCU-CHEK COMFORT CURVE STRIP VI SCH ×6 (00:50→20:39)
[2020-03-03] MEDS: InsuLIN REG 1unit/0.01ml Soln (100units/ml) SC SCH ×6 (00:55→20:41)
[2020-03-03] MEDS: SODIUM CHLOR 0.9% PF (SALINE LOCK) 10ML VIAL/SYR IV SCH ×3 (04:56→22:04)
[2020-03-03 05:00] VITALS: BP 115/45
[2020-03-03] MEDS: HEPARIN SODIUM (PORCINE) 5000 UNITS/ML 1ML VIAL SC SCH ×3 (05:48→22:07)
--- NOTE | 2020-03-03 06:57 | NUR ---
closing note. pt resting in semi fowlers with HOB elevated at 30 degrees. no s/s of pain or respiratory distress. endorsed care to day shift RN.
--- NOTE | 2020-03-03 08:29 | NUR ---
Opening Shift Note Assumed care of patient, awake and alert. No S/S of distress/SOB remains on 2l , denies pain. Instructed on POC and to call for assist PRN, will continue to monitor for changes Q1hr and PRN.
[2020-03-03] MEDS: SEVELAMER 800 MG TAB PO SCH ×3 (08:51→17:22)
[2020-03-03] MEDS: cefTRIAXone 1GM/50ML D5W 50 ML IV SCH (08:54)
[2020-03-03 09:17] VITALS: BP 100/42
[2020-03-03] MEDS: AZITHROMYCIN 500MG/ 250ML 250 ML IV SCH (09:32)
[2020-03-03] MEDS: ASPirin 81 mg TAB PO SCH (09:32)
[2020-03-03] MEDS: hydrALAZINE HCL 25 MG TAB PO SCH ×2 (09:33→22:00)
[2020-03-03] MEDS: ZINC SULFATE 220mg CAP or TAB PO SCH (09:33)
[2020-03-03] MEDS: FAMOTIDINE 20 MG TAB PO SCH (09:34)
[2020-03-03] MEDS: MULTIPLE VITAMIN TAB PO SCH (09:34)
[2020-03-03] MEDS: amLODIPine BESYLATE 5 MG TAB PO SCH (09:34)
[2020-03-03] MEDS: CARVEDILOL 12.5 MG TAB PO SCH ×2 (09:34→22:00)
[2020-03-03] MEDS: CHOLECALCIFEROL (VITD3) 2,000 UNIT CAP PO SCH (09:35)
[2020-03-03] MEDS: ASCORBIC ACID 500 MG TAB PO SCH ×2 (09:35→22:06)
[2020-03-03] MEDS: ALLOPURINOL 100 MG TAB PO SCH (09:35)
[2020-03-03 11:18] LABS: Basophils # (auto) 0 10 ^3/uL (0-0.2); Eosinophils # (auto) 0 10 ^3/uL (0-0.8); Monocytes # (auto) 0.6 10 ^3/uL (0-1.3); Monocytes % (auto) 5.5 % (0.0-12.0); White Blood Cell 10.3 10^3/uL (4.4-10.8)
[2020-03-03 11:21] LABS: Basophils % (auto) 0.1 % (0.0-2.0); Hematocrit 28.5 % (36.0-46.0); Hemoglobin 8.9 g/dL (12.2-16.2); Lymphocytes # (auto) 0.9 10 ^3/uL (0.4-5.4); Lymphocytes % (auto) 8.9 % (10.0-50.0); Mean Corpuscular Hemoglobin 26.3 pg (28.0-32.0); Mean Corpuscular Hgb Conc. 31.1 g/dL (32.0-36.0); Mean Corpuscular Volume 84.7 fL (80.0-100.0); Neutrophils # (auto) 8.8 10 ^3/uL (1.6-8.6); Neutrophils % (auto) 85.5 % (37.0-80.0); Nucleated Red Blood Cells % 0.1 %; Platelet Count (auto) 266 10^3/uL (140-450); Red Blood Cells 3.37 10^6/uL (4.0-5.20)
[2020-03-03 11:29] LABS: Red Cell Distribution Width 21.8 % (11.8-14.3)
--- NOTE | 2020-03-03 12:11 | NUR ---
Nutrition Assessment Notes please see attached link for complete assessment [employer] needs BW 52 [id number] kcals (30-33kcal/kgBW), Est Protein needs: 62-78 gms/day (1.2-1.5 gm/kgBW r/t HD severe hypoalb). Will continue to monitor and reassess prn. Addendum: 03/03/20 at [address] Amended: Links added.
[2020-03-03 12:44] LABS: BUN/Creatinine Ratio 6.6; Calcium 7.3 mg/dL (8.5-10.1); Potassium 4.4 mmol/L (3.5-5.1)
[2020-03-03 13:00] VITALS: BP 96/42
[2020-03-03 17:16] VITALS: BP 107/54
[2020-03-03] MEDS: DexAMETHasone INJECTION 6 MG in D5W 5% 50 ML IV SCH (17:21)
--- NOTE | 2020-03-03 17:53 | NUR ---
D/C Planning Per social service consult for [facility] to assist with dialysis at home. Faxed clinical information to [facility]. Per Patience with [facility] they are unable to accept patient on dialysis. Placed call to patient [facility] [phone] several times not answer and unable to leave a voice mail message.
[2020-03-03 21:00] VITALS: BP 100/48
[2020-03-03] MEDS: GABAPENTIN 300 MG CAP PO SCH (22:06)
[2020-03-03] MEDS: ATORVASTATIN 20 MG TAB PO SCH (22:06)
[2020-03-04] MEDS: ACCU-CHEK COMFORT CURVE STRIP VI SCH ×6 (01:22→20:28)
[2020-03-04] MEDS: InsuLIN REG 1unit/0.01ml Soln (100units/ml) SC SCH ×6 (01:23→20:37)
[2020-03-04 05:00] VITALS: BP 116/40
[2020-03-04] MEDS: SODIUM CHLOR 0.9% PF (SALINE LOCK) 10ML VIAL/SYR IV SCH ×3 (06:44→22:40)
[2020-03-04] MEDS: HEPARIN SODIUM (PORCINE) 5000 UNITS/ML 1ML VIAL SC SCH ×3 (06:45→22:00)
--- NOTE | 2020-03-04 06:59 | NUR ---
closing note pt is on 2Lnc. no s/s of respiratory distress. no c/o pain. endorsed care to day shift RN.
--- NOTE | 2020-03-04 07:38 | NUR ---
Opening Shift Note Assumed care of patient, awake and alert. No S/S of distress/SOB Paitent currently on 5LNC , denies pain. Instructed on POC and to call for assist PRN, will continue to monitor for changes Q1hr and PRN.
--- NOTE | 2020-03-04 08:10 | NUR ---
Respiratory note: PT FIO2 INCREASED TO 4 LPM NASAL CANNULA DUE TO SP02 87% . PT TOLERATED CHANGE WELL. SPO2 AFTER CHANGE 94%, HR 68, RR 18. RN AWARE. WILL CONTINUE TO MONITOR PT.
[2020-03-04] MEDS: SEVELAMER 800 MG TAB PO SCH ×3 (08:42→17:56)
[2020-03-04] MEDS: ZINC SULFATE 220mg CAP or TAB PO SCH (08:43)
[2020-03-04] MEDS: hydrALAZINE HCL 25 MG TAB PO SCH ×2 (08:43→22:40)
[2020-03-04] MEDS: ASPirin 81 mg TAB PO SCH (08:43)
[2020-03-04] MEDS: FERROUS SULFATE 325 MG TAB PO SCH (08:43)
[2020-03-04] MEDS: CARVEDILOL 12.5 MG TAB PO SCH ×2 (08:44→22:40)
[2020-03-04] MEDS: MULTIPLE VITAMIN TAB PO SCH (08:44)
[2020-03-04] MEDS: amLODIPine BESYLATE 5 MG TAB PO SCH (08:45)
[2020-03-04] MEDS: ALLOPURINOL 100 MG TAB PO SCH (08:45)
[2020-03-04] MEDS: FAMOTIDINE 20 MG TAB PO SCH (08:45)
[2020-03-04] MEDS: CHOLECALCIFEROL (VITD3) 2,000 UNIT CAP PO SCH (08:45)
[2020-03-04] MEDS: ASCORBIC ACID 500 MG TAB PO SCH ×2 (08:45→22:40)
[2020-03-04 09:00] VITALS: BP 117/52
[2020-03-04] MEDS: cefTRIAXone 1GM/50ML D5W 50 ML IV SCH (09:00)
[2020-03-04] MEDS: AZITHROMYCIN 500MG/ 250ML 250 ML IV SCH (10:00)
--- NOTE | 2020-03-04 10:40 | NUR ---
MD MERLE MCKENZIE AT BEDSIDE. ALL QUESTIONS AND CONCERNS ADDRESSED AT THIS TIME. PER MD PATIENT WILL BE DISCHARGED TO SNF PENDING DIALYSIS AND LONG PATIENT IS ABLE TO TOLERATE 2-3L NC
[2020-03-04 13:00] VITALS: BP 107/45
--- NOTE | 2020-03-04 13:17 | NUR ---
LONG MCKENZIE RE: PATIENT TITRATED FROM 3L NC WITH SPO2 85% TO 5L NC WITH SPO2 93%
--- NOTE | 2020-03-04 13:25 | NUR ---
MD RETURNED PAGE PER RN IS TO CONTACT SIGNING AGENT FLAQUITA AND UPDATE HIM ON NEW ORDERS. D/C WILL BE HELD OF NOW
--- NOTE | 2020-03-04 13:26 | NUR ---
KAR SAMS RE: PATIENT NEEDING TO TITRATE TO 5L NC.
[2020-03-04] MEDS: DexAMETHasone INJECTION 6 MG in D5W 5% 50 ML IV SCH (15:23)
[2020-03-04 21:57] VITALS: BP 139/54
[2020-03-04] MEDS: ATORVASTATIN 20 MG TAB PO SCH (22:40)
[2020-03-04] MEDS: GABAPENTIN 300 MG CAP PO SCH (22:40)
[2020-03-05] MEDS: ACCU-CHEK COMFORT CURVE STRIP VI SCH ×6 (00:10→20:06)
[2020-03-05] MEDS: InsuLIN REG 1unit/0.01ml Soln (100units/ml) SC SCH ×6 (04:00→20:00)
[2020-03-05 05:00] VITALS: BP 133/48
[2020-03-05] MEDS: SODIUM CHLOR 0.9% PF (SALINE LOCK) 10ML VIAL/SYR IV SCH ×3 (06:00→22:22)
[2020-03-05] MEDS: HEPARIN SODIUM (PORCINE) 5000 UNITS/ML 1ML VIAL SC SCH ×3 (07:06→22:23)
[2020-03-05] MEDS: SEVELAMER 800 MG TAB PO SCH ×3 (08:31→18:08)
[2020-03-05] MEDS: cefTRIAXone 1GM/50ML D5W 50 ML IV SCH (08:32)
[2020-03-05 09:00] VITALS: BP 117/44
[2020-03-05] MEDS: CARVEDILOL 12.5 MG TAB PO SCH ×3 (10:00→22:22)
[2020-03-05] MEDS: hydrALAZINE HCL 25 MG TAB PO SCH (10:00)
[2020-03-05] MEDS: AZITHROMYCIN 500MG/ 250ML 250 ML IV SCH (10:00)
[2020-03-05] MEDS: amLODIPine BESYLATE 5 MG TAB PO SCH (10:00)
[2020-03-05] MEDS: CHOLECALCIFEROL (VITD3) 2,000 UNIT CAP PO SCH (11:16)
[2020-03-05] MEDS: MULTIPLE VITAMIN TAB PO SCH (11:17)
[2020-03-05] MEDS: ASCORBIC ACID 500 MG TAB PO SCH ×2 (11:17→22:23)
[2020-03-05] MEDS: ASPirin 81 mg TAB PO SCH (11:17)
[2020-03-05] MEDS: ZINC SULFATE 220mg CAP or TAB PO SCH (11:17)
[2020-03-05] MEDS: FAMOTIDINE 20 MG TAB PO SCH (11:17)
[2020-03-05] MEDS: ALLOPURINOL 100 MG TAB PO SCH (11:17)
[2020-03-05 13:00] VITALS: BP 119/44
--- NOTE | 2020-03-05 14:26 | NUR ---
Patient titrated down to 2LNC patient saturations 99%. Patient tolerated well.
--- NOTE | 2020-03-05 14:30 | NUR ---
DOCTOR MAGALY BLOOM MD INFORM PATIENT DIDNT TAKE MORNING BLOOD PRESSURE MEDICATIONS, INFORMED MD PATIENT DIASTOLIC WAS 44 THIS MORNING AND AFTERNOON, ORDERS RECEIVED TO D/C HYDRALAZINE.
--- NOTE | 2020-03-05 15:00 | NUR ---
Medicare IM Patient is on the covid unit and is covid positive. Anaid TIJERINA has been provided with IM for patient to sign and place in chart. Addendum: 03/05/20 at 1502 by Anali ROCK Amended: Links added.
--- NOTE | 2020-03-05 16:31 | NUR ---
D/C Planning Per social service consult for SNF placement. Faxed clinical information to [facility] and [facility]. Pending acceptance. Contact Olamide with [facility] advising her patient is positive COVID and SNF placement is pending.
[2020-03-05 16:59] VITALS: BP 108/41
[2020-03-05] MEDS: DexAMETHasone SOD PHOS 10MG/1ML VIAL INJ IV SCH (18:09)
--- NOTE | 2020-03-05 19:30 | NUR ---
Opening Shift Note Assumed care of patient, awake and alert. No S/S of distress/SOB or pain. Instructed on POC and to call for assist PRN, will continue to monitor for changes Q1hr and PRN.
[2020-03-05 22:00] VITALS: BP 106/44
[2020-03-05] MEDS: ATORVASTATIN 20 MG TAB PO SCH (22:23)
[2020-03-05] MEDS: GABAPENTIN 300 MG CAP PO SCH (22:23)
[2020-03-06] MEDS: ACCU-CHEK COMFORT CURVE STRIP VI SCH ×7 (00:27→23:43)
[2020-03-06] MEDS: InsuLIN REG 1unit/0.01ml Soln (100units/ml) SC SCH ×7 (00:32→23:49)
[2020-03-06 05:00] VITALS: BP 95/44
[2020-03-06 05:57] LABS: Hematocrit 23.3 % (36.0-46.0); Hemoglobin 7.3 g/dL (12.2-16.2)
[2020-03-06 06:12] LABS: Calcium 7.2 mg/dL (8.5-10.1); Potassium 5.2 mmol/L (3.5-5.1)
[2020-03-06 06:14] LABS: BUN/Creatinine Ratio 7.1
[2020-03-06 06:21] LABS: % Iron Saturation 9.6 % (15-50)
[2020-03-06] MEDS: SODIUM CHLOR 0.9% PF (SALINE LOCK) 10ML VIAL/SYR IV SCH ×3 (06:29→22:19)
[2020-03-06] MEDS: HEPARIN SODIUM (PORCINE) 5000 UNITS/ML 1ML VIAL SC SCH ×3 (06:29→22:22)
--- NOTE | 2020-03-06 06:33 | NUR ---
Received critical labs - BUN 83 and Cr 11.7. Patient will be receiving dialysis in the morning.
--- NOTE | 2020-03-06 06:35 | NUR ---
Patient O2 saturation was 100% in the am. Patient titrated down to 3L. Will continue to monitor.
[2020-03-06] MEDS ORDERED: SODIUM CHL 0.9% 1000 ML BAG XX ONE (07:00)
[2020-03-06] MEDS: CARVEDILOL 12.5 MG TAB PO SCH ×2 (07:29→22:00)
[2020-03-06] MEDS: amLODIPine BESYLATE 5 MG TAB PO SCH (07:29)
[2020-03-06] MEDS: SEVELAMER 800 MG TAB PO SCH ×3 (08:28→17:31)
[2020-03-06 09:00] VITALS: BP 104/47
[2020-03-06] MEDS: ZINC SULFATE 220mg CAP or TAB PO SCH (09:34)
[2020-03-06] MEDS: FAMOTIDINE 20 MG TAB PO SCH (09:34)
[2020-03-06] MEDS: cefTRIAXone 1GM/50ML D5W 50 ML IV SCH (09:34)
[2020-03-06] MEDS: CHOLECALCIFEROL (VITD3) 2,000 UNIT CAP PO SCH (09:35)
[2020-03-06] MEDS: MULTIPLE VITAMIN TAB PO SCH (09:35)
[2020-03-06] MEDS: ALLOPURINOL 100 MG TAB PO SCH (09:36)
[2020-03-06] MEDS: FERROUS SULFATE 325 MG TAB PO SCH (09:36)
[2020-03-06] MEDS: ASPirin 81 mg TAB PO SCH (09:37)
[2020-03-06] MEDS: ASCORBIC ACID 500 MG TAB PO SCH ×2 (09:37→22:18)
[2020-03-06] MEDS: AZITHROMYCIN 500MG/ 250ML 250 ML IV SCH (11:00)
[2020-03-06] MEDS: DexAMETHasone SOD PHOS 10MG/1ML VIAL INJ IV SCH (11:16)
[2020-03-06 13:00] VITALS: BP 105/53
--- NOTE | 2020-03-06 14:00 | NUR ---
Received phone call from [facility] dialysis, Lisa dialysis nurse will dialyze patient later on today.
[2020-03-06 17:00] VITALS: BP 98/48
--- NOTE | 2020-03-06 19:45 | NUR ---
Opening Shift Note Assumed care of patient, awake and alert. No S/S of distress/SOB or pain noted. Instructed on POC and to call for assist PRN. Bed is in lowest locked position with bed rails up x2 and call light is within reach of the patient. Bed alarm is armed.
--- NOTE | 2020-03-06 19:55 | NUR ---
Dialysis End: Patient completed dialysis and tolerated well per photo booth operator. Stated that 1 and a half liters was taken out.
[2020-03-06] MEDS ORDERED: EPOETIN ALFA 10,000 UNIT/1 ML VIAL SC ONE (21:00)
--- NOTE | 2020-03-06 21:06 | NUR ---
Epogen not available: Epogen not available in Pyxis for patient. Attempted to call pharmacy, no answer. Called to notify charge nurse that epogen not available for patient post dialysis. Charge nurse aware and is to notify lumber sales supervisor.
[2020-03-06 21:41] VITALS: BP 101/54
--- NOTE | 2020-03-06 22:00 | NUR ---
Respiratory note: ROUTINE O2 CHECK. SPO2 92% ON 9L OXYMIZER; HEART RATE 76 BPM; RESPIRATORY RATE 20; BREATH SOUNDS DIMINISHED. NO RESPIRATORY DISTRESS NOTED AT THIS TIME. Addendum: 03/06/20 at 2358 by RT DEEDEE RT Amended: Links added.
--- NOTE | 2020-03-06 22:02 | NUR ---
Epogen: Received Epogen medication from supervisor sanding. To administer as ordered.
--- NOTE | 2020-03-06 22:15 | NUR ---
Oxygen: Patient was found by respiratory therapist to have oxygen saturation at 82% on 2 liters nasal cannula. Respiratory therapist stated to the RN that she placed patient on 9 Liters Oxymizer to raise oxygen saturation. Patients oxygen reassessed as 97% on 9 liters Oxymizer.
[2020-03-06] MEDS: ATORVASTATIN 20 MG TAB PO SCH (22:17)
[2020-03-06] MEDS: GABAPENTIN 300 MG CAP PO SCH (22:18)
[2020-03-06 22:27] VITALS: BP 101/42
[2020-03-07] VITALS (7 sets, daily range): BP systolic 100–125; BP diastolic 40–52
[2020-03-07] MEDS: ACCU-CHEK COMFORT CURVE STRIP VI SCH ×5 (04:03→22:34)
[2020-03-07] MEDS: InsuLIN REG 1unit/0.01ml Soln (100units/ml) SC SCH ×5 (04:10→21:20)
[2020-03-07] MEDS: HEPARIN SODIUM (PORCINE) 5000 UNITS/ML 1ML VIAL SC SCH ×3 (06:11→22:00)
[2020-03-07] MEDS: SODIUM CHLOR 0.9% PF (SALINE LOCK) 10ML VIAL/SYR IV SCH ×3 (06:11→22:35)
[2020-03-07] MEDS: SEVELAMER 800 MG TAB PO SCH ×3 (08:09→17:47)
[2020-03-07] MEDS: cefTRIAXone 1GM/50ML D5W 50 ML IV SCH (08:10)
--- NOTE | 2020-03-07 09:45 | NUR ---
Dr Pemberton bedside with patient. Informed MD of patients hgb of 7.3. Order received for stool occult blood. Addendum: 03/07/20 at 1403 by TRACI WONG RN RN Informed by to hold Heparin for now
[2020-03-07] MEDS: AZITHROMYCIN 500MG/ 250ML 250 ML IV SCH (09:50)
[2020-03-07] MEDS: DexAMETHasone SOD PHOS 10MG/1ML VIAL INJ IV SCH (09:50)
[2020-03-07] MEDS: ASPirin 81 mg TAB PO SCH (09:51)
[2020-03-07] MEDS: MULTIPLE VITAMIN TAB PO SCH (09:52)
[2020-03-07] MEDS: CARVEDILOL 12.5 MG TAB PO SCH ×2 (09:52→22:00)
[2020-03-07] MEDS: FAMOTIDINE 20 MG TAB PO SCH (09:53)
[2020-03-07] MEDS: amLODIPine BESYLATE 5 MG TAB PO SCH (09:53)
[2020-03-07] MEDS: ASCORBIC ACID 500 MG TAB PO SCH ×2 (09:54→22:41)
[2020-03-07] MEDS: ALLOPURINOL 100 MG TAB PO SCH (09:54)
[2020-03-07] MEDS: ZINC SULFATE 220mg CAP or TAB PO SCH (09:59)
[2020-03-07] MEDS: CHOLECALCIFEROL (VITD3) 2,000 UNIT CAP PO SCH (09:59)
--- NOTE | 2020-03-07 13:49 | NUR ---
Nutrition Followup Notes Pt wt is 54.5 kg Pt is positive for COVID. Unable to reach pt by phone. Pt is with a Renal Standard diet, appetite is fair aeb 50% x4 PO intake per RN doc.Per MD note, pt is on wait for SNF bed. Refer to nutrition recommendations noted below under Comments. Est Energy needs BW 52 [id number] kcals (30-33kcal/kgBW), Est Protein needs: 62-78 gms/day (1.2-1.5 gm/kgBW r/t HD severe hypoalb). Will continue to monitor and reassess prn. LABS: GLUC 210 H, CA 4.2 L, ALB 2.3 L GI: Pt had 2 BMs on 03/06 per RN doc. BS: 16 mod risk. Refer to wound assessment report for further details. PES: Problem Altered nutrition related lab values rt current chronic medical condition aeb elev RFT A1C severe hypoalb Comments Will continue to monitor PO status, skin status, pertinent labs and weight trends. Will f/u in 3-5 days 1) Consider CCHO 60 gm along with current diet 2) Consider Prostat 1 packet bid 3) Refer to CDE on DC 4) Continue current plan fo care
[2020-03-07] MEDS: GABAPENTIN 300 MG CAP PO SCH (22:40)
[2020-03-07] MEDS: ATORVASTATIN 20 MG TAB PO SCH (22:40)
[2020-03-08] MEDS: ACCU-CHEK COMFORT CURVE STRIP VI SCH ×6 (01:18→19:36)
[2020-03-08] MEDS: InsuLIN REG 1unit/0.01ml Soln (100units/ml) SC SCH ×6 (01:22→19:37)
[2020-03-08 05:00] VITALS: BP 107/44
[2020-03-08] MEDS: SODIUM CHLOR 0.9% PF (SALINE LOCK) 10ML VIAL/SYR IV SCH ×3 (05:08→22:25)
[2020-03-08] MEDS: HEPARIN SODIUM (PORCINE) 5000 UNITS/ML 1ML VIAL SC SCH ×3 (05:26→22:27)
--- NOTE | 2020-03-08 06:59 | NUR ---
closing note pt is resting in semi fowlers with HOB at 30 degrees. no respiratory distress noted. no c/o pain. pt is on 3L oxymizer. endorsed care to day shift RN.
[2020-03-08 07:35] LABS: Basophils # (auto) 0 10 ^3/uL (0-0.2); Basophils % (auto) 0.1 % (0.0-2.0); Eosinophils # (auto) 0 10 ^3/uL (0-0.8); Hemoglobin 7.1 g/dL (12.2-16.2); Monocytes # (auto) 0.6 10 ^3/uL (0-1.3)
[2020-03-08 07:37] LABS: Hematocrit 23.8 % (36.0-46.0); Lymphocytes # (auto) 0.7 10 ^3/uL (0.4-5.4); Lymphocytes % (auto) 4.1 % (10.0-50.0); Mean Corpuscular Hemoglobin 25.4 pg (28.0-32.0); Mean Corpuscular Hgb Conc. 29.7 g/dL (32.0-36.0); Mean Corpuscular Volume 85.5 fL (80.0-100.0); Monocytes % (auto) 3.6 % (0.0-12.0); Neutrophils # (auto) 15.8 10 ^3/uL (1.6-8.6); Neutrophils % (auto) 92.2 % (37.0-80.0); Platelet Count (auto) 462 10^3/uL (140-450); Red Blood Cells 2.78 10^6/uL (4.0-5.20); Red Cell Distribution Width 21.4 % (11.8-14.3); White Blood Cell 17.1 10^3/uL (4.4-10.8)
[2020-03-08 07:53] LABS: Potassium 5.2 mmol/L (3.5-5.1)
[2020-03-08] MEDS: SEVELAMER 800 MG TAB PO SCH ×3 (07:59→18:14)
[2020-03-08 08:00] VITALS: BP 120/58
[2020-03-08 08:17] LABS: BUN/Creatinine Ratio 7.7; Calcium 7.6 mg/dL (8.5-10.1)
--- NOTE | 2020-03-08 08:27 | NUR ---
Paged Dr Wellington with patients Critical labs of: BUN 80 & Creatinine 10.40.
[2020-03-08 08:58] VITALS: BP 120/58
[2020-03-08] MEDS: cefTRIAXone 1GM/50ML D5W 50 ML IV SCH (09:16)
--- NOTE | 2020-03-08 09:37 | NUR ---
Spoke with Dr Wellington and informed him of patients critical labs. He will place orders for Dialysis for later today or tomorrow.
[2020-03-08] MEDS: DexAMETHasone SOD PHOS 10MG/1ML VIAL INJ IV SCH (10:06)
[2020-03-08] MEDS: AZITHROMYCIN 500MG/ 250ML 250 ML IV SCH (10:06)
[2020-03-08] MEDS: ASPirin 81 mg TAB PO SCH (10:06)
[2020-03-08] MEDS: ZINC SULFATE 220mg CAP or TAB PO SCH (10:07)
[2020-03-08] MEDS: FERROUS SULFATE 325 MG TAB PO SCH (10:07)
[2020-03-08] MEDS: MULTIPLE VITAMIN TAB PO SCH (10:07)
[2020-03-08] MEDS: CARVEDILOL 12.5 MG TAB PO SCH ×2 (10:07→22:00)
[2020-03-08] MEDS: FAMOTIDINE 20 MG TAB PO SCH (10:08)
[2020-03-08] MEDS: amLODIPine BESYLATE 5 MG TAB PO SCH (10:08)
[2020-03-08] MEDS: ASCORBIC ACID 500 MG TAB PO SCH ×2 (10:08→22:26)
[2020-03-08] MEDS: CHOLECALCIFEROL (VITD3) 2,000 UNIT CAP PO SCH (10:09)
[2020-03-08] MEDS: ALLOPURINOL 100 MG TAB PO SCH (10:09)
--- NOTE | 2020-03-08 12:33 | NUR ---
Pt refused PT tx citing c/o fatigue & nausea. RN informed. Addendum: 03/08/20 at 1236 by Brenton Arreguin ATHLETIC MONITOR Amended: Links added.
--- NOTE | 2020-03-08 12:40 | NUR ---
Informed Dr Pemberton of patients hgb of 7.1, patients nausea and increased weakness. Order received for a unit of blood to be transfused with dialysis. Order placed.
[2020-03-08 13:00] VITALS: BP 117/51
[2020-03-08] MEDS ORDERED: SODIUM ZIRCONIUM CYCL 10 GM PAK PO ONE (14:00)
--- NOTE | 2020-03-08 14:50 | NUR ---
Dr Pemberton bedside with patient. Per , resume Heparin q8h.
[2020-03-08 16:52] VITALS: BP 111/47
[2020-03-08 22:00] VITALS: BP 103/49
[2020-03-08] MEDS: ATORVASTATIN 20 MG TAB PO SCH (22:25)
[2020-03-08] MEDS: GABAPENTIN 300 MG CAP PO SCH (22:25)
[2020-03-09] VITALS (8 sets, daily range): BP systolic 96–139; BP diastolic 41–56
[2020-03-09] MEDS: ACCU-CHEK COMFORT CURVE STRIP VI SCH ×6 (00:41→19:58)
[2020-03-09] MEDS: InsuLIN REG 1unit/0.01ml Soln (100units/ml) SC SCH ×6 (00:43→20:05)
[2020-03-09] MEDS: SODIUM CHLOR 0.9% PF (SALINE LOCK) 10ML VIAL/SYR IV SCH ×3 (05:22→22:19)
[2020-03-09] MEDS: HEPARIN SODIUM (PORCINE) 5000 UNITS/ML 1ML VIAL SC SCH ×3 (05:26→22:21)
[2020-03-09 06:46] LABS: Basophils # (auto) 0 10 ^3/uL (0-0.2); Basophils % (auto) 0.1 % (0.0-2.0); Eosinophils # (auto) 0 10 ^3/uL (0-0.8); Eosinophils % (auto) 0.1 % (0.0-7.0); Lymphocytes # (auto) 0.7 10 ^3/uL (0.4-5.4); Monocytes # (auto) 0.8 10 ^3/uL (0-1.3); Neutrophils # (auto) 14.1 10 ^3/uL (1.6-8.6)
[2020-03-09 06:48] LABS: Lymphocytes % (auto) 4.7 % (10.0-50.0); Mean Corpuscular Hemoglobin 25.4 pg (28.0-32.0); Mean Corpuscular Hgb Conc. 29.5 g/dL (32.0-36.0); Mean Corpuscular Volume 86.1 fL (80.0-100.0); Neutrophils % (auto) 90.1 % (37.0-80.0); Nucleated Red Blood Cells % 0.1 %; Platelet Count (auto) 493 10^3/uL (140-450); Red Blood Cells 3.14 10^6/uL (4.0-5.20); White Blood Cell 15.7 10^3/uL (4.4-10.8)
[2020-03-09 06:55] LABS: Red Cell Distribution Width 21.1 % (11.8-14.3)
[2020-03-09 07:10] LABS: BUN/Creatinine Ratio 7.8; Calcium 8.1 mg/dL (8.5-10.1)
[2020-03-09 07:15] LABS: % Iron Saturation 34.9 % (15-50)
--- NOTE | 2020-03-09 07:20 | NUR ---
DIALYSIS NURSE SARAH AGRAWAL AT BED SIDE
[2020-03-09 07:22] LABS: Potassium 6.2 mmol/L (3.5-5.1)
--- NOTE | 2020-03-09 07:41 | NUR ---
closing note pt is resting in semi fowlers with HOB at 30 degrees. pt is on 3.5L nc. no respiratory distress noted. endorsed care to day shift RN Amber.
[2020-03-09] MEDS: SEVELAMER 800 MG TAB PO SCH ×3 (08:00→18:00)
--- NOTE | 2020-03-09 08:00 | NUR ---
ASSESSMENT NOTE PT IS RESTING ON BED COMFORTABLY ON SUPINE POSITION, TOLERATING DIALYSIS WELL, NO DISTRESS NOTED, PT APPEAR TIRED AND WEAK, SELF REPOSITION NEEDED, CALL LIGHT WITHIN REACH, BED ALARM ACTIVATED, PAIN 0/10
--- NOTE | 2020-03-09 08:47 | NUR ---
BLOOD TRANSFUSION INITIATED DURING DIALYSIS
--- NOTE | 2020-03-09 09:15 | NUR ---
PT TOLERATED BLOOD TRANSFUSION WELL, NO REACTION NOTED
--- NOTE | 2020-03-09 10:34 | NUR ---
DIALYSIS IS DONE WITH 650+ PT HAS BLOOD TRANSFUSION DURING DIALYSIS
[2020-03-09] MEDS: cefTRIAXone 1GM/50ML D5W 50 ML IV SCH (10:49)
[2020-03-09] MEDS: AZITHROMYCIN 500MG/ 250ML 250 ML IV SCH (12:32)
--- NOTE | 2020-03-09 13:00 | NUR ---
LUNCH PT IS EATING LUNCH, TOLERATED WELL, THEN WENT BACK TO SLEEP
[2020-03-09] MEDS: DexAMETHasone SOD PHOS 10MG/1ML VIAL INJ IV SCH (13:09)
[2020-03-09] MEDS: ASPirin 81 mg TAB PO SCH (13:09)
[2020-03-09] MEDS: ZINC SULFATE 220mg CAP or TAB PO SCH (13:10)
[2020-03-09] MEDS: MULTIPLE VITAMIN TAB PO SCH (13:10)
[2020-03-09] MEDS: CARVEDILOL 12.5 MG TAB PO SCH ×2 (13:10→22:00)
[2020-03-09] MEDS: FAMOTIDINE 20 MG TAB PO SCH (13:11)
[2020-03-09] MEDS: amLODIPine BESYLATE 5 MG TAB PO SCH (13:11)
[2020-03-09] MEDS: ASCORBIC ACID 500 MG TAB PO SCH ×2 (13:11→22:20)
[2020-03-09] MEDS: ALLOPURINOL 100 MG TAB PO SCH (13:12)
[2020-03-09] MEDS: CHOLECALCIFEROL (VITD3) 2,000 UNIT CAP PO SCH (13:12)
--- NOTE | 2020-03-09 16:00 | NUR ---
PT CONTINUE VERY WEAK AND LETHARGIC, SLEEPING, NO DISTRESS NOTED
--- NOTE | 2020-03-09 17:43 | NUR ---
PATIENT GOT DIALYSIS IN AM. SKIP PT UNTIL TOMORROW. Addendum: 03/09/20 at 1745 by MARIBETH SARAVIA PTT Amended: Links added.
--- NOTE | 2020-03-09 18:12 | NUR ---
DINNER PT REFUSED
[2020-03-09] MEDS ORDERED: EPOETIN ALFA 10,000 UNIT/1 ML VIAL SC ONE (21:00)
[2020-03-09] MEDS: ATORVASTATIN 20 MG TAB PO SCH (22:19)
[2020-03-09] MEDS: GABAPENTIN 300 MG CAP PO SCH (22:19)
[2020-03-10] MEDS: ACCU-CHEK COMFORT CURVE STRIP VI SCH ×6 (00:06→20:04)
[2020-03-10] MEDS: InsuLIN REG 1unit/0.01ml Soln (100units/ml) SC SCH ×6 (00:07→20:06)
[2020-03-10 05:00] VITALS: BP 146/54
[2020-03-10] MEDS: SODIUM CHLOR 0.9% PF (SALINE LOCK) 10ML VIAL/SYR IV SCH ×3 (05:02→22:05)
[2020-03-10] MEDS: HEPARIN SODIUM (PORCINE) 5000 UNITS/ML 1ML VIAL SC SCH ×3 (05:03→22:06)
[2020-03-10 06:56] LABS: Basophils # (auto) 0 10 ^3/uL (0-0.2); Eosinophils # (auto) 0 10 ^3/uL (0-0.8); Lymphocytes # (auto) 0.4 10 ^3/uL (0.4-5.4); Monocytes # (auto) 0.6 10 ^3/uL (0-1.3)
[2020-03-10 06:57] LABS: Basophils % (auto) 0.1 % (0.0-2.0); Eosinophils % (auto) 0.1 % (0.0-7.0); Hematocrit 27.9 % (36.0-46.0); Hemoglobin 8.8 g/dL (12.2-16.2); Lymphocytes % (auto) 2.6 % (10.0-50.0); Mean Corpuscular Hgb Conc. 31.5 g/dL (32.0-36.0); Mean Corpuscular Volume 85.8 fL (80.0-100.0); Monocytes % (auto) 4.4 % (0.0-12.0); Neutrophils # (auto) 13.1 10 ^3/uL (1.6-8.6); Neutrophils % (auto) 92.8 % (37.0-80.0); Nucleated Red Blood Cells % 0.1 %; Platelet Count (auto) 277 10^3/uL (140-450); Red Blood Cells 3.25 10^6/uL (4.0-5.20); Red Cell Distribution Width 19.1 % (11.8-14.3); White Blood Cell 14.1 10^3/uL (4.4-10.8)
--- NOTE | 2020-03-10 07:03 | NUR ---
closing note pt is on 4lnc. no respiratory distress noted. no s/s of pain or discomfort. endorsed care to day shift RN.
[2020-03-10 07:11] LABS: BUN/Creatinine Ratio 6.1; Magnesium 2.7 mg/dL (1.6-2.6)
--- NOTE | 2020-03-10 07:30 | NUR ---
Opening Shift Note Assumed care of patient, awake and alert bed is locked and in lowest position bed rails up x2 , call light is within reach. No S/S of distress/SOB or pain. Instructed on POC and to call for assist PRN, will continue to monitor for changes Q1hr and PRN.
--- NOTE | 2020-03-10 08:30 | NUR ---
patient is not eating non admin insulin at this time will continue to monitor Addendum: 03/10/20 at 0938 by Katerine Queen RN blood glucose was 156
[2020-03-10 09:00] VITALS: BP 152/64
[2020-03-10] MEDS: SEVELAMER 800 MG TAB PO SCH ×3 (09:00→18:00)
[2020-03-10] MEDS: cefTRIAXone 1GM/50ML D5W 50 ML IV SCH (09:36)
[2020-03-10] MEDS: AZITHROMYCIN 500MG/ 250ML 250 ML IV SCH (11:00)
[2020-03-10] MEDS: DexAMETHasone SOD PHOS 10MG/1ML VIAL INJ IV SCH (11:04)
[2020-03-10] MEDS: ZINC SULFATE 220mg CAP or TAB PO SCH (11:05)
[2020-03-10] MEDS: FERROUS SULFATE 325 MG TAB PO SCH (11:05)
[2020-03-10] MEDS: ASPirin 81 mg TAB PO SCH (11:05)
[2020-03-10] MEDS: CARVEDILOL 12.5 MG TAB PO SCH ×2 (11:06→22:16)
[2020-03-10] MEDS: MULTIPLE VITAMIN TAB PO SCH (11:07)
[2020-03-10] MEDS: amLODIPine BESYLATE 5 MG TAB PO SCH (11:07)
[2020-03-10] MEDS: FAMOTIDINE 20 MG TAB PO SCH (11:10)
[2020-03-10] MEDS: ASCORBIC ACID 500 MG TAB PO SCH ×2 (11:11→22:05)
[2020-03-10] MEDS: CHOLECALCIFEROL (VITD3) 2,000 UNIT CAP PO SCH (11:12)
[2020-03-10] MEDS: ALLOPURINOL 100 MG TAB PO SCH (11:12)
--- NOTE | 2020-03-10 11:37 | NUR ---
Nutrition Followup Notes Wt: 57.7 kg Pt is positive for COVID. pt had HD on 03/08 per records. pt dd not waste picker her phone call. Pt is with a Renal Standard diet, with inadequate PO of < 50% x 4 per RN doc Est Energy needs BW 52 [id number] kcals (30-33kcal/kgBW), Est Protein needs: 62-78 gms/day (1.2-1.5 gm/kgBW r/t HD severe hypoalb). Will continue to monitor and reassess prn. LABS: BUN 47 H CREAT 7.69 H GLU 168 H CA 8.0 L GI: Pt had 2 BMs on 03/06 per RN doc. BS: 20 low risk. Refer to wound assessment report for further details. PES: Altered nutrition related lab values rt current chronic medical condition aeb elev RFT A1C severe hypoalb Comments Will continue to monitor PO status, skin status, pertinent labs and weight trends. Will f/u in 3-5 days 1) Consider CCHO 60 gm along with current diet. 2) Consider Prostat 1 packet bid. 3) Refer to CDE on DC. 4) Continue current plan fo care
[2020-03-10 13:00] VITALS: BP 104/43
--- NOTE | 2020-03-10 16:05 | NUR ---
Patient refused blood glucose check , doesn't believe that her sugars are high and is barely eating , educated patient why she needed to eat and why they needed to have there blood glucose checked patient still refused.
[2020-03-10 17:00] VITALS: BP 101/39
[2020-03-10 22:00] VITALS: BP 115/51
[2020-03-10] MEDS: ATORVASTATIN 20 MG TAB PO SCH (22:05)
[2020-03-10] MEDS: GABAPENTIN 300 MG CAP PO SCH (22:05)
--- NOTE | 2020-03-10 22:30 | NUR ---
Hospitalist Quintin New orders received. change insulin scale to aggressive scale. orders read back and verified.
[2020-03-10] MEDS ORDERED: DEXTROSE (50%) 50ML SYRG IV PRN (23:15)
[2020-03-11] MEDS: ACCU-CHEK COMFORT CURVE STRIP VI SCH ×6 (00:10→20:04)
[2020-03-11] MEDS: InsuLIN REG 1unit/0.01ml Soln (100units/ml) SC SCH ×6 (00:13→20:05)
[2020-03-11 05:00] VITALS: BP 114/52
[2020-03-11] MEDS: SODIUM CHLOR 0.9% PF (SALINE LOCK) 10ML VIAL/SYR IV SCH ×3 (06:25→21:05)
[2020-03-11] MEDS: HEPARIN SODIUM (PORCINE) 5000 UNITS/ML 1ML VIAL SC SCH ×3 (06:26→21:07)
--- NOTE | 2020-03-11 07:03 | NUR ---
closing note pt is resting in semi fowlers with HOB at 30 degrees. no c/o pain or discomfort. pt is on 4Lnc. no s/s of respiratory distress. endorsed care to day shift RN.
[2020-03-11] MEDS: SEVELAMER 800 MG TAB PO SCH ×3 (08:28→18:13)
[2020-03-11 09:29] VITALS: BP 125/60
[2020-03-11] MEDS: DexAMETHasone SOD PHOS 10MG/1ML VIAL INJ IV SCH (10:08)
[2020-03-11] MEDS: cefTRIAXone 1GM/50ML D5W 50 ML IV SCH (10:08)
[2020-03-11] MEDS: ASPirin 81 mg TAB PO SCH (10:09)
[2020-03-11] MEDS: ZINC SULFATE 220mg CAP or TAB PO SCH (10:09)
[2020-03-11] MEDS: CARVEDILOL 12.5 MG TAB PO SCH ×2 (10:10→21:06)
[2020-03-11] MEDS: MULTIPLE VITAMIN TAB PO SCH (10:11)
[2020-03-11] MEDS: ASCORBIC ACID 500 MG TAB PO SCH ×2 (10:12→21:06)
[2020-03-11] MEDS: ALLOPURINOL 100 MG TAB PO SCH (10:12)
[2020-03-11] MEDS: CHOLECALCIFEROL (VITD3) 2,000 UNIT CAP PO SCH (10:12)
[2020-03-11] MEDS: amLODIPine BESYLATE 5 MG TAB PO SCH (10:12)
[2020-03-11] MEDS: FAMOTIDINE 20 MG TAB PO SCH (10:12)
[2020-03-11] MEDS: AZITHROMYCIN 500MG/ 250ML 250 ML IV SCH (11:30)
[2020-03-11 13:00] VITALS: BP 103/51
[2020-03-11 16:41] VITALS: BP 118/68
[2020-03-11] MEDS: GABAPENTIN 300 MG CAP PO SCH (21:06)
[2020-03-11] MEDS: ATORVASTATIN 20 MG TAB PO SCH (21:06)
[2020-03-11 22:00] VITALS: BP 119/49
[2020-03-12] MEDS: ACCU-CHEK COMFORT CURVE STRIP VI SCH ×6 (00:49→20:17)
[2020-03-12] MEDS: InsuLIN REG 1unit/0.01ml Soln (100units/ml) SC SCH ×6 (00:51→20:16)
[2020-03-12 05:44] VITALS: BP 121/54
[2020-03-12] MEDS: HEPARIN SODIUM (PORCINE) 5000 UNITS/ML 1ML VIAL SC SCH ×3 (05:57→22:29)
[2020-03-12] MEDS: SODIUM CHLOR 0.9% PF (SALINE LOCK) 10ML VIAL/SYR IV SCH ×3 (05:57→20:18)
--- NOTE | 2020-03-12 06:57 | NUR ---
closing note pt is currently on 4Lnc. no s/s of respiratory distress. no c/o pain or discomfort. pt will have hemodialysis today. endorsed care to day shift RN.
[2020-03-12 06:59] LABS: Basophils # (auto) 0 10 ^3/uL (0-0.2); Basophils % (auto) 0.2 % (0.0-2.0); Eosinophils # (auto) 0.1 10 ^3/uL (0-0.8); Eosinophils % (auto) 0.3 % (0.0-7.0); Hematocrit 33.1 % (36.0-46.0); Hemoglobin 10.4 g/dL (12.2-16.2); Lymphocytes # (auto) 0.4 10 ^3/uL (0.4-5.4); Lymphocytes % (auto) 2.2 % (10.0-50.0); Mean Corpuscular Hemoglobin 27.5 pg (28.0-32.0); Mean Corpuscular Hgb Conc. 31.5 g/dL (32.0-36.0); Mean Corpuscular Volume 87.3 fL (80.0-100.0); Monocytes # (auto) 0.4 10 ^3/uL (0-1.3); Monocytes % (auto) 2.1 % (0.0-12.0); Neutrophils # (auto) 16.4 10 ^3/uL (1.6-8.6); Neutrophils % (auto) 95.2 % (37.0-80.0); Nucleated Red Blood Cells % 0.1 %; Platelet Count (auto) 325 10^3/uL (140-450); Red Blood Cells 3.79 10^6/uL (4.0-5.20); Red Cell Distribution Width 18.8 % (11.8-14.3); White Blood Cell 17.3 10^3/uL (4.4-10.8)
[2020-03-12] MEDS ORDERED: SODIUM CHL 0.9% 1000 ML BAG XX ONE (07:00)
[2020-03-12 07:29] LABS: Albumin 2.1 g/dL (3.4-5.0); BUN/Creatinine Ratio 7.1; Calcium 8.5 mg/dL (8.5-10.1); Magnesium 2.9 mg/dL (1.6-2.6); Potassium 5.4 mmol/L (3.5-5.1)
[2020-03-12 07:32] LABS: Bilirubin, Total 0.3 mg/dL (0.2-1.0); Total Protein 6.1 g/dL (6.4-8.2)
[2020-03-12 08:00] VITALS: BP 139/56
--- NOTE | 2020-03-12 08:20 | NUR ---
Opening Shift Note Assumed care of patient. Patient sleeping and hard to arouse. Patient on 4L NC. A/O X 1. Patient is hard of hearing but when asked her name, patient struggled to remember and verbalize her response. Talked to Dr. Pemberton who was rounding at the time and he explained that she is A/O X 4, just slow to respond. Patient was re-asked orientation questions and did state her name but was unable to answer any other questions regarding time or her location. No S/S of distress/SOB or pain. Instructed on POC and to call for assist PRN. Safety measures are in place and the call light is within reach of the patient. will continue to monitor for changes Q1hr and PRN.
[2020-03-12] MEDS: cefTRIAXone 1GM/50ML D5W 50 ML IV SCH (08:22)
[2020-03-12] MEDS: SEVELAMER 800 MG TAB PO SCH ×3 (08:30→18:04)
[2020-03-12 09:00] VITALS: BP 139/56
[2020-03-12] MEDS: FERROUS SULFATE 325 MG TAB PO SCH (10:00)
[2020-03-12] MEDS: FAMOTIDINE 20 MG TAB PO SCH (10:00)
[2020-03-12] MEDS: amLODIPine BESYLATE 5 MG TAB PO SCH (10:00)
[2020-03-12] MEDS: DexAMETHasone SOD PHOS 10MG/1ML VIAL INJ IV SCH (10:00)
[2020-03-12] MEDS: MULTIPLE VITAMIN TAB PO SCH (10:00)
[2020-03-12] MEDS: ZINC SULFATE 220mg CAP or TAB PO SCH (10:00)
[2020-03-12] MEDS: ASCORBIC ACID 500 MG TAB PO SCH ×2 (10:00→22:27)
[2020-03-12] MEDS: CHOLECALCIFEROL (VITD3) 2,000 UNIT CAP PO SCH (10:00)
[2020-03-12] MEDS: ASPirin 81 mg TAB PO SCH (10:00)
[2020-03-12] MEDS: AZITHROMYCIN 500MG/ 250ML 250 ML IV SCH (10:00)
[2020-03-12] MEDS: ALLOPURINOL 100 MG TAB PO SCH (10:00)
[2020-03-12] MEDS: CARVEDILOL 12.5 MG TAB PO SCH ×2 (10:00→22:28)
--- NOTE | 2020-03-12 10:55 | NUR ---
Medication Carvedilol withheld due to HR 61. Dr. Pemberton called and message was left on voicemail.
--- NOTE | 2020-03-12 11:00 | NUR ---
WOUND CARE NOTE: IN TO SEE PATIENT AT THIS TIME PER NURSE REQUEST. [facility] PNA, COVID 19. SHE IS IN [place]NE ISOLATION IN COVID UNIT. PATIENT HAS CURRENT PURNIMA SCORE OF 18, SHE IS ABLE TO ASSIST WITH HER TURNING/REPOSITIONING. SHE IS NOTED TO HAVE NON BLANCHABLE REDNESS OVER COLLAGEN SCAR TO THE SACRUM. IT APPEARS THAT PATIENT MAY HAVE A PREVIOUS HISTORY WITH PRESSURE INJURY TO THE AREA. ZGUARD AND OPTIFAOM GENTLE SACRAL DRESSING APPLIED BY BEDSIDE NURSE. BEDSIDE NURSE PHOTOGRAPHED WOUND FOR REFERENCE. RECOMMEND: FREQUENT TURN SCHEDULE Q 2 HOURS, PRN CONDITION PERMITS, WITH PRESSURE REDISTRIBUTE PRESSURE POINTS WITH PILLOWS/WEDGES, SPECIALTY AIR MATTRESS, BID/PRN APPLICATION MOISTURE BARRIER CREAM, OPTIFOAM GENTLE SACRAL DRESSING, SKIN/WOUND CARE PLAN, DIETARY CONSULT, CONTINUED MONITORING BY WOUND CARE TEAM. Addendum: 03/12/20 at 1810 by Aurelia Bowling RN Amended: Links added.
--- NOTE | 2020-03-12 11:18 | NUR ---
Skin assessment Wound care at bedside staging patient's sacral area as a stage II with scaring. Small opening noted. Optifoam applied with Q2H turning suggested.
[2020-03-12 13:00] VITALS: BP 122/56
[2020-03-12 17:00] VITALS: BP 118/47
--- NOTE | 2020-03-12 19:30 | NUR ---
Opening Shift Note Assumed care of patient, awake and alert. No S/S of distress/SOB or pain. Insructed on POC and to callfor assist PRN, will continue to monitor for changes Q1hr and PRN. Fall and safety precautions in place. Call light within reach.
[2020-03-12] MEDS ORDERED: EPOETIN ALFA 10,000 UNIT/1 ML VIAL SC ONE (21:00)
[2020-03-12 22:00] VITALS: BP 129/50
[2020-03-12] MEDS: GABAPENTIN 300 MG CAP PO SCH (22:27)
[2020-03-12] MEDS: ATORVASTATIN 20 MG TAB PO SCH (22:28)
[2020-03-13] MEDS: ACCU-CHEK COMFORT CURVE STRIP VI SCH ×6 (03:38→21:15)
[2020-03-13] MEDS: InsuLIN REG 1unit/0.01ml Soln (100units/ml) SC SCH ×6 (03:38→21:54)
[2020-03-13 05:00] VITALS: BP 131/52
[2020-03-13] MEDS: SODIUM CHLOR 0.9% PF (SALINE LOCK) 10ML VIAL/SYR IV SCH ×3 (05:32→22:02)
[2020-03-13] MEDS: HEPARIN SODIUM (PORCINE) 5000 UNITS/ML 1ML VIAL SC SCH ×3 (05:33→22:03)
--- NOTE | 2020-03-13 07:55 | NUR ---
Opening Shift Note Assumed care of patient, awake and alert. A/O X 2. Patient has improved in orientation compared to yesterday morning. Patient is much more verbal and able to make direct eye contact, ask questions and respond clearly to questions. laborer powerhouse reported patient had dialysis yesterday with 1.5L removed. Patient on 2L NC. No S/S of distress/SOB or pain. Instructed on POC and to call for assist PRN. Patient verbalized understanding. Safety measures are in place and the call light and phone are within reach of the patient. Will continue to monitor for changes Q1hr and PRN.
[2020-03-13] MEDS: cefTRIAXone 1GM/50ML D5W 50 ML IV SCH (08:00)
[2020-03-13 08:15] VITALS: BP 136/49
[2020-03-13 08:32] VITALS: BP 136/49
[2020-03-13 09:00] VITALS: BP 104/61
[2020-03-13] MEDS: AZITHROMYCIN 500MG/ 250ML 250 ML IV SCH (10:30)
[2020-03-13] MEDS: ASCORBIC ACID 500 MG TAB PO SCH ×2 (10:30→22:03)
[2020-03-13] MEDS: ASPirin 81 mg TAB PO SCH (10:30)
[2020-03-13] MEDS: ALLOPURINOL 100 MG TAB PO SCH (10:30)
[2020-03-13] MEDS: CARVEDILOL 12.5 MG TAB PO SCH ×2 (10:30→22:00)
[2020-03-13] MEDS: amLODIPine BESYLATE 5 MG TAB PO SCH (10:30)
--- NOTE | 2020-03-13 10:30 | NUR ---
Medication withheld Carvedilol withheld due to [address]. Dr. Pemberton called message left.
--- NOTE | 2020-03-13 12:27 | NUR ---
Nutrition Followup Notes Wt: 57.4 kg Pt is positive for COVID. Pt is with a Renal Standard diet, with inadequate PO of 39% x 6 per RN doc Est Energy needs BW 52 [id number] kcals (30-33kcal/kgBW), Est Protein needs: 62-78 gms/day (1.2-1.5 gm/kgBW r/t HD severe hypoalb). Will continue to monitor and reassess prn. LABS: BUN 69 H CREAT 9.70 H GLU 152 H ALB 2.1 L GI: Pt had 1 BM on 03/11 per RN doc. BS: 20 low risk. Refer to wound assessment report for further details. PES: Altered nutrition related lab values rt current chronic medical condition aeb elev RFT A1C severe hypoalb Comments Will continue to monitor PO status, skin status, pertinent labs and weight trends. Will f/u in 3-5 days 1) Consider CCHO 60 gm along with current diet. 2) Consider Prostat 1 packet bid. 3) Refer to CDE on DC. 4) Continue current plan fo care
[2020-03-13] MEDS: DexAMETHasone SOD PHOS 10MG/1ML VIAL INJ IV SCH (12:29)
[2020-03-13] MEDS: CHOLECALCIFEROL (VITD3) 2,000 UNIT CAP PO SCH (12:29)
[2020-03-13] MEDS: ZINC SULFATE 220mg CAP or TAB PO SCH (12:29)
[2020-03-13] MEDS: MULTIPLE VITAMIN TAB PO SCH (12:29)
[2020-03-13] MEDS: SEVELAMER 800 MG TAB PO SCH ×3 (12:29→17:30)
--- NOTE | 2020-03-13 12:51 | NUR ---
Dr. Gil called regarding COVID results Dr. Pemberton transferred care of the patient to Dr. Gil. Doctor called and suggested to consult with SS regarding a facility that is willing to take positive patients. Will put in an order for another COVID RNA swab for tomorrow.
[2020-03-13 13:22] VITALS: BP 113/38
[2020-03-13 13:52] LABS: Eosinophils # (auto) 0.1 10 ^3/uL (0-0.8); Hemoglobin 9.3 g/dL (12.2-16.2); Lymphocytes # (auto) 0.3 10 ^3/uL (0.4-5.4); Mean Corpuscular Hemoglobin 27.2 pg (28.0-32.0); Monocytes # (auto) 0.3 10 ^3/uL (0-1.3); White Blood Cell 17.4 10^3/uL (4.4-10.8)
[2020-03-13 13:54] LABS: Basophils # (auto) 0.2 10 ^3/uL (0-0.2); Basophils % (auto) 1.3 % (0.0-2.0); Eosinophils % (auto) 0.7 % (0.0-7.0); Hematocrit 30.2 % (36.0-46.0); Lymphocytes % (auto) 1.8 % (10.0-50.0); Mean Corpuscular Hgb Conc. 30.7 g/dL (32.0-36.0); Mean Corpuscular Volume 88.7 fL (80.0-100.0); Monocytes % (auto) 1.6 % (0.0-12.0); Neutrophils # (auto) 16.5 10 ^3/uL (1.6-8.6); Neutrophils % (auto) 94.6 % (37.0-80.0); Platelet Count (auto) 296 10^3/uL (140-450); Red Cell Distribution Width 19.4 % (11.8-14.3)
[2020-03-13 14:13] LABS: BUN/Creatinine Ratio 5.7; Calcium 7.9 mg/dL (8.5-10.1); Potassium 4.2 mmol/L (3.5-5.1)
--- NOTE | 2020-03-13 15:00 | NUR ---
D/C Planning Regarding social service consult for SNF Placement. [facility] who are contracted with patient health plan are unable to accommodate patients need due to being positive COVID and needing dialysis. Informed RN Delfina and KEVIN Quiñonez with [facility]
[2020-03-13 16:33] VITALS: BP 118/45
--- NOTE | 2020-03-13 18:17 | NUR ---
COVID swab sent to lab In house COVID swab collected and sent to lab.
--- NOTE | 2020-03-13 18:27 | NUR ---
Spoke with family Spoke with nephew of the patient regarding the status and discharge placement of the patient. He verbalized his understanding of the plan.
[2020-03-13] MEDS: ATORVASTATIN 20 MG TAB PO SCH (22:02)
[2020-03-13] MEDS: GABAPENTIN 300 MG CAP PO SCH (22:03)
[2020-03-14] MEDS: ACCU-CHEK COMFORT CURVE STRIP VI SCH ×6 (00:22→20:51)
[2020-03-14] MEDS: InsuLIN REG 1unit/0.01ml Soln (100units/ml) SC SCH ×6 (00:25→20:52)
[2020-03-14 05:00] VITALS: BP 134/65
[2020-03-14] MEDS: SODIUM CHLOR 0.9% PF (SALINE LOCK) 10ML VIAL/SYR IV SCH ×3 (06:40→22:30)
[2020-03-14] MEDS: HEPARIN SODIUM (PORCINE) 5000 UNITS/ML 1ML VIAL SC SCH ×3 (06:41→22:31)
[2020-03-14] MEDS ORDERED: SODIUM CHL 0.9% 1000 ML BAG XX ONE (07:00)
--- NOTE | 2020-03-14 07:00 | NUR ---
Opening Shift Note Assumed care of patient, awake and alert. A/O X 2. Patient on 2L NC. IV redressed. Skin warm and dry with minimal drainage noted on sacral wound. Optifoam in place. Patient turned to her left side. No S/S of distress/SOB or pain. Instructed on POC and to call for assist PRN. Patient verbalized understanding. Safety measures are in place and the call light and phone are within reach of the patient. Will continue to monitor for changes Q1hr and PRN.
[2020-03-14 07:57] LABS: Potassium 4.9 mmol/L (3.5-5.1)
[2020-03-14] MEDS: SEVELAMER 800 MG TAB PO SCH ×3 (08:00→17:55)
[2020-03-14 08:01] LABS: BUN/Creatinine Ratio 6.5; Calcium 8.1 mg/dL (8.5-10.1)
[2020-03-14 08:09] LABS: Basophils # (auto) 0 10 ^3/uL (0-0.2); Basophils % (auto) 0.1 % (0.0-2.0); Eosinophils # (auto) 0 10 ^3/uL (0-0.8); Eosinophils % (auto) 0.2 % (0.0-7.0); Hematocrit 35.1 % (36.0-46.0); Lymphocytes # (auto) 0.6 10 ^3/uL (0.4-5.4); Lymphocytes % (auto) 3.5 % (10.0-50.0); Mean Corpuscular Hgb Conc. 28.6 g/dL (32.0-36.0); Mean Corpuscular Volume 94.5 fL (80.0-100.0); Monocytes # (auto) 0.8 10 ^3/uL (0-1.3); Monocytes % (auto) 4.8 % (0.0-12.0); Neutrophils # (auto) 15.8 10 ^3/uL (1.6-8.6); Neutrophils % (auto) 91.4 % (37.0-80.0); Nucleated Red Blood Cells % 0.1 %; Platelet Count (auto) 247 10^3/uL (140-450); Red Blood Cells 3.71 10^6/uL (4.0-5.20); White Blood Cell 17.3 10^3/uL (4.4-10.8)
[2020-03-14 08:11] LABS: Red Cell Distribution Width 20.5 % (11.8-14.3)
[2020-03-14 09:00] VITALS: BP 145/59
[2020-03-14] MEDS: cefTRIAXone 1GM/50ML D5W 50 ML IV SCH (09:00)
[2020-03-14] MEDS: FAMOTIDINE 20 MG TAB PO SCH (09:15)
[2020-03-14] MEDS: DexAMETHasone SOD PHOS 10MG/1ML VIAL INJ IV SCH (09:38)
[2020-03-14] MEDS: ASCORBIC ACID 500 MG TAB PO SCH (09:39)
[2020-03-14] MEDS: ASPirin 81 mg TAB PO SCH (09:39)
[2020-03-14] MEDS: ALLOPURINOL 100 MG TAB PO SCH (09:39)
[2020-03-14] MEDS: MULTIPLE VITAMIN TAB PO SCH (09:39)
[2020-03-14] MEDS: CHOLECALCIFEROL (VITD3) 2,000 UNIT CAP PO SCH (09:39)
[2020-03-14] MEDS: FERROUS SULFATE 325 MG TAB PO SCH (09:39)
[2020-03-14] MEDS: ZINC SULFATE 220mg CAP or TAB PO SCH (09:39)
[2020-03-14] MEDS: CARVEDILOL 12.5 MG TAB PO SCH ×2 (09:40→22:32)
[2020-03-14] MEDS: amLODIPine BESYLATE 5 MG TAB PO SCH (09:42)
[2020-03-14] MEDS: AZITHROMYCIN 500MG/ 250ML 250 ML IV SCH (10:00)
--- NOTE | 2020-03-14 10:30 | NUR ---
Medication withheld Carvedilol withheld due to low heart rate 59. Will notify hospitalist.
--- NOTE | 2020-03-14 11:08 | NUR ---
Spoke with Dr. Gil Spoke with Dr. Tamayo regarding the status of the COVID testing frequency and the POC. Doctor communicated that a PT evaluation is needed and that COVID swab can be collected tomorrow. Orders read back and verified.
[2020-03-14] MEDS ORDERED: SODIUM ZIRCONIUM CYCL 10 GM PAK PO ONE (12:15)
[2020-03-14 13:00] VITALS: BP 129/59
--- NOTE | 2020-03-14 15:00 | NUR ---
PT Jenni PT came to reevaluate the patient for discharge and recommends SNF placement.
[2020-03-14 17:00] VITALS: BP 121/54
--- NOTE | 2020-03-14 19:32 | NUR ---
Opening Shift Note Assumed care of patient, awake, but confused, alert to self and situation. No S/S of distress/SOB or pain. Bed is in lowest position and locked. Call light within reach. Board updated. Tele box number matches monitor and leads are in correct placement. Instructed on POC and to call for assist PRN, will continue to monitor for changes Q1hr and PRN.
[2020-03-14] MEDS ORDERED: EPOETIN ALFA 10,000 UNIT/1 ML VIAL SC ONE (21:00)
[2020-03-14 22:00] VITALS: BP 129/59
[2020-03-14] MEDS: ATORVASTATIN 20 MG TAB PO SCH (22:30)
[2020-03-14] MEDS: GABAPENTIN 300 MG CAP PO SCH (22:30)
[2020-03-15] MEDS: ACCU-CHEK COMFORT CURVE STRIP VI SCH ×6 (00:53→20:29)
[2020-03-15] MEDS: InsuLIN REG 1unit/0.01ml Soln (100units/ml) SC SCH ×6 (00:59→20:29)
[2020-03-15 05:00] VITALS: BP 133/58
[2020-03-15] MEDS: SODIUM CHLOR 0.9% PF (SALINE LOCK) 10ML VIAL/SYR IV SCH ×3 (06:04→22:00)
[2020-03-15] MEDS: HEPARIN SODIUM (PORCINE) 5000 UNITS/ML 1ML VIAL SC SCH ×3 (06:04→22:00)
[2020-03-15 06:39] LABS: Basophils # (auto) 0.1 10 ^3/uL (0-0.2); Basophils % (auto) 0.3 % (0.0-2.0); Eosinophils # (auto) 0.1 10 ^3/uL (0-0.8); Hemoglobin 8.9 g/dL (12.2-16.2); Neutrophils % (auto) 91.4 % (37.0-80.0)
[2020-03-15 06:41] LABS: Eosinophils % (auto) 0.5 % (0.0-7.0); Hematocrit 28.4 % (36.0-46.0); Lymphocytes # (auto) 0.7 10 ^3/uL (0.4-5.4); Lymphocytes % (auto) 3.5 % (10.0-50.0); Mean Corpuscular Hemoglobin 27.2 pg (28.0-32.0); Mean Corpuscular Hgb Conc. 31.3 g/dL (32.0-36.0); Monocytes # (auto) 0.9 10 ^3/uL (0-1.3); Monocytes % (auto) 4.3 % (0.0-12.0); Neutrophils # (auto) 18.7 10 ^3/uL (1.6-8.6); Platelet Count (auto) 261 10^3/uL (140-450); Red Blood Cells 3.27 10^6/uL (4.0-5.20); Red Cell Distribution Width 19.4 % (11.8-14.3); White Blood Cell 20.5 10^3/uL (4.4-10.8)
[2020-03-15 07:04] LABS: Potassium 4.5 mmol/L (3.5-5.1)
[2020-03-15 07:22] LABS: BUN/Creatinine Ratio 6.6; Calcium 8.1 mg/dL (8.5-10.1)
--- NOTE | 2020-03-15 08:00 | NUR ---
Opening Shift Note Assumed care of patient, awake, alert and oriented X4. No S/S of distress/SOB or pain. O2 @ 2 LPM via nasal cannula with sats @ 96%. IV to wrist, 22 gauge, patent and saline locked. Left upper chest Thiago Cath with dressing clean, dry, and intact. Patient has multiple wounds, see wound care notes, dressings clean, dry and intact. Instructed on POC and to call for assist PRN, verbalized understanding. Bed locked, in lowest position, call light within reach, will continue to monitor for changes Q1hr and PRN
[2020-03-15] MEDS: SEVELAMER 800 MG TAB PO SCH ×3 (08:33→17:48)
[2020-03-15 09:00] VITALS: BP 124/52
[2020-03-15] MEDS: amLODIPine BESYLATE 5 MG TAB PO SCH (09:44)
[2020-03-15] MEDS: CARVEDILOL 12.5 MG TAB PO SCH ×2 (09:44→22:00)
[2020-03-15] MEDS: ALLOPURINOL 100 MG TAB PO SCH (10:16)
[2020-03-15] MEDS: MULTIPLE VITAMIN TAB PO SCH (10:16)
[2020-03-15] MEDS: ASPirin 81 mg TAB PO SCH (10:16)
[2020-03-15 12:42] VITALS: BP 124/56
--- NOTE | 2020-03-15 12:45 | NUR ---
HEMODIALYSIS NGHIA Junior, Hemodialysis nurse at bedside starting Hemodialysis.
--- NOTE | 2020-03-15 14:20 | NUR ---
PULMONOLOGY Dr Brandon at bedside for Pulmonology follow up, no new orders received at this time.
[2020-03-15 16:57] VITALS: BP 107/66
--- NOTE | 2020-03-15 19:34 | NUR ---
Care endorsed to NGHIA Brantley, night nurse.
--- NOTE | 2020-03-15 19:45 | NUR ---
Opening Shift Note Assumed care of patient. Patient laying in bed. No S/S of distress/SOB or pain. Safety measures maintained by keeping the bed locked in lowest position, 2 side rails up, personal items and call light within reach. Instructed on POC and to call for assist PRN, will continue to monitor for changes Q1hr and PRN.
--- NOTE | 2020-03-15 19:54 | NUR ---
Respiratory note: TITRATED FIO2 TO 1LNC AT THIS TIME
[2020-03-15] MEDS ORDERED: EPOETIN ALFA 10,000 UNIT/1 ML VIAL SC ONE (21:00)
[2020-03-15] MEDS ORDERED: EPOETIN ALFA 10,000 UNIT/1 ML VIAL SC SCH (21:30)
[2020-03-15 22:00] VITALS: BP 129/51
[2020-03-15] MEDS: GABAPENTIN 300 MG CAP PO SCH (22:00)
[2020-03-15] MEDS: ATORVASTATIN 20 MG TAB PO SCH (22:00)
[2020-03-15] MEDS ORDERED: EPOETIN ALFA 10,000 UNIT/1 ML VIAL ONE (22:14)
[2020-03-16] MEDS: ACCU-CHEK COMFORT CURVE STRIP VI SCH ×5 (00:05→22:55)
[2020-03-16] MEDS: InsuLIN REG 1unit/0.01ml Soln (100units/ml) SC SCH ×5 (00:08→22:56)
[2020-03-16 05:35] VITALS: BP 123/51
[2020-03-16] MEDS ORDERED: HEPARIN SODIUM (PORCINE) 5000 UNITS/ML 1ML VIAL ONE ×2 (05:41→22:49)
[2020-03-16] MEDS: SODIUM CHLOR 0.9% PF (SALINE LOCK) 10ML VIAL/SYR IV SCH ×3 (05:50→22:54)
[2020-03-16] MEDS: HEPARIN SODIUM (PORCINE) 5000 UNITS/ML 1ML VIAL SC SCH ×3 (05:51→22:56)
[2020-03-16] MEDS: SEVELAMER 800 MG TAB PO SCH ×3 (07:31→18:26)
--- NOTE | 2020-03-16 08:00 | NUR ---
Opening Shift Note Assumed care of patient, awake, alert and oriented X4. No S/S of distress/SOB or pain. O2 @ 1 LPM via nasal cannula with sats @ 94%. IV to right wrist, 22 gauge, patent and saline locked. Left upper chest Thiago Cath with dressing clean, dry, and intact. Patient has multiple wounds, see wound care notes, dressings clean, dry and intact. Instructed on POC and to call for assist PRN, verbalized understanding. Bed locked, in lowest position, call light within reach, will continue to monitor for changes Q1hr and PRN
[2020-03-16 09:00] VITALS: BP 110/42
[2020-03-16] MEDS: CARVEDILOL 12.5 MG TAB PO SCH ×2 (10:00→22:54)
[2020-03-16] MEDS: amLODIPine BESYLATE 5 MG TAB PO SCH (10:00)
[2020-03-16] MEDS: FAMOTIDINE 20 MG TAB PO SCH (11:03)
[2020-03-16] MEDS: ASPirin 81 mg TAB PO SCH (11:03)
[2020-03-16] MEDS: FERROUS SULFATE 325 MG TAB PO SCH (11:04)
[2020-03-16] MEDS: MULTIPLE VITAMIN TAB PO SCH (11:04)
[2020-03-16] MEDS: ALLOPURINOL 100 MG TAB PO SCH (11:05)
--- NOTE | 2020-03-16 11:47 | NUR ---
Nutrition Followup Notes Wt: 57.4 kg Pt is positive for COVID. pt had HD 03/15. Pt is with a Renal Standard diet, with adequate PO of 75% x 6 per RN doc Est Energy needs BW 52 [id number] kcals (30-33kcal/kgBW), Est Protein needs: 62-78 gms/day (1.2-1.5 gm/kgBW r/t HD severe hypoalb). Will continue to monitor and reassess prn. LABS: BUN 58 H CREAT 8.78 H CA 8.1 L ALB 2.1 L GI: Pt had 1 BM on 03/11 per RN doc. BS: 12 high risk. Refer to wound assessment report for further details. PES: Altered nutrition related lab values rt current chronic medical condition aeb elev RFT A1C severe hypoalb Comments Will continue to monitor PO status, skin status, pertinent labs and weight trends. Will f/u in 3-5 days 1) Consider CCHO 60 gm along with current diet. 2) Consider Prostat 1 packet bid. 3) Refer to CDE on DC. 4) Continue current plan fo care
[2020-03-16 13:00] VITALS: BP 121/42
[2020-03-16 13:36] LABS: Eosinophils % (auto) 1.4 % (0.0-7.0); Lymphocytes # (auto) 0.8 10 ^3/uL (0.4-5.4); Monocytes # (auto) 1.1 10 ^3/uL (0-1.3); Nucleated Red Blood Cells % 0.1 %
[2020-03-16 13:37] LABS: Basophils # (auto) 0.1 10 ^3/uL (0-0.2); Basophils % (auto) 0.8 % (0.0-2.0); Eosinophils # (auto) 0.2 10 ^3/uL (0-0.8); Hematocrit 29.7 % (36.0-46.0); Hemoglobin 9.2 g/dL (12.2-16.2); Lymphocytes % (auto) 4.4 % (10.0-50.0); Mean Corpuscular Hemoglobin 27.7 pg (28.0-32.0); Mean Corpuscular Hgb Conc. 30.9 g/dL (32.0-36.0); Mean Corpuscular Volume 89.8 fL (80.0-100.0); Neutrophils # (auto) 15.3 10 ^3/uL (1.6-8.6); Neutrophils % (auto) 87.4 % (37.0-80.0); Platelet Count (auto) 168 10^3/uL (140-450); White Blood Cell 17.5 10^3/uL (4.4-10.8)
[2020-03-16 13:38] LABS: Red Cell Distribution Width 20.5 % (11.8-14.3)
[2020-03-16 13:51] LABS: BUN/Creatinine Ratio 6.3; Calcium 8.1 mg/dL (8.5-10.1); Potassium 4.6 mmol/L (3.5-5.1)
[2020-03-16 17:46] VITALS: BP 131/49
--- NOTE | 2020-03-16 19:26 | NUR ---
Care endorsed to NGHIA Brantley, night nurse.
--- NOTE | 2020-03-16 19:40 | NUR ---
Opening Shift Note Assumed care of patient. Patient sleeping in bed. No S/S of distress/SOB or pain. Patient on 1L NC, O2 sat at 96%. Safety measures maintained by keeping the bed locked in lowest position, 2 side rails up, personal items and call light within reach. Instructed on POC and to call for assist PRN, will continue to monitor for changes Q1hr and PRN.
[2020-03-16 22:00] VITALS: BP 119/62
[2020-03-16] MEDS: GABAPENTIN 300 MG CAP PO SCH (22:55)
[2020-03-16] MEDS: ATORVASTATIN 20 MG TAB PO SCH (22:55)
[2020-03-17 05:00] VITALS: BP 111/53
[2020-03-17] MEDS: SODIUM CHLOR 0.9% PF (SALINE LOCK) 10ML VIAL/SYR IV SCH ×3 (05:25→22:56)
[2020-03-17] MEDS: ACCU-CHEK COMFORT CURVE STRIP VI SCH ×4 (06:26→22:57)
[2020-03-17] MEDS: InsuLIN REG 1unit/0.01ml Soln (100units/ml) SC SCH ×4 (06:26→22:00)
[2020-03-17 06:30] LABS: Basophils # (auto) 0.1 10 ^3/uL (0-0.2); Hemoglobin 7.8 g/dL (12.2-16.2); Platelet Count (auto) 130 10^3/uL (140-450)
--- NOTE | 2020-03-17 06:31 | NUR ---
Paged Hospitalist for Low blood sugar of 53. Patient given milk and some jello as there is no juice in the fridge. Patient's blood sugar now 60.
[2020-03-17 06:32] LABS: Basophils % (auto) 0.4 % (0.0-2.0); Eosinophils # (auto) 0.2 10 ^3/uL (0-0.8); Hematocrit 25.4 % (36.0-46.0); Lymphocytes # (auto) 0.7 10 ^3/uL (0.4-5.4); Mean Corpuscular Hemoglobin 27.3 pg (28.0-32.0); Mean Corpuscular Hgb Conc. 30.7 g/dL (32.0-36.0); Mean Corpuscular Volume 89.2 fL (80.0-100.0); Monocytes # (auto) 1.4 10 ^3/uL (0-1.3); Monocytes % (auto) 8.3 % (0.0-12.0); Neutrophils # (auto) 15.1 10 ^3/uL (1.6-8.6); Neutrophils % (auto) 86.3 % (37.0-80.0); Red Blood Cells 2.85 10^6/uL (4.0-5.20); White Blood Cell 17.5 10^3/uL (4.4-10.8)
[2020-03-17] MEDS: HEPARIN SODIUM (PORCINE) 5000 UNITS/ML 1ML VIAL SC SCH ×3 (06:35→22:58)
[2020-03-17 06:45] LABS: Red Cell Distribution Width 20.8 % (11.8-14.3)
[2020-03-17 06:52] LABS: Potassium 4.3 mmol/L (3.5-5.1)
[2020-03-17 06:59] LABS: BUN/Creatinine Ratio 6.4; Calcium 7.8 mg/dL (8.5-10.1)
--- NOTE | 2020-03-17 07:04 | NUR ---
Spoke to Hospitalist No new orders given at this time
[2020-03-17 08:30] VITALS: BP 104/44
[2020-03-17] MEDS: SEVELAMER 800 MG TAB PO SCH ×3 (09:06→18:25)
[2020-03-17] MEDS: MULTIPLE VITAMIN TAB PO SCH (09:06)
[2020-03-17] MEDS: amLODIPine BESYLATE 5 MG TAB PO SCH (09:06)
[2020-03-17] MEDS: ALLOPURINOL 100 MG TAB PO SCH (09:06)
[2020-03-17] MEDS: ASPirin 81 mg TAB PO SCH (09:06)
[2020-03-17] MEDS: CARVEDILOL 12.5 MG TAB PO SCH ×2 (09:07→22:00)
[2020-03-17 14:28] VITALS: BP 120/51
--- NOTE | 2020-03-17 16:41 | NUR ---
D/C planning Regarding social service consult for SNF placement. On 03/13/20 KEVIN Quiñonez with [facility] was contact regarding [facility] and [facility] not being able to accommodate patients needs due to being positive COVID and being a dialysis patient that will be coming in and out of the facility. Informed KEVIN Quiñonez [facility] is not accepting any new patient at this time . KEVIN Quiñonez provided me with a list for out of area [place], [facility] and [facility]. [facility] are at full capacity and are unable to accept new patient and [facility] is not accepting patients at this time. Contact KEVIN Quiñonez who informed me she is willing to do an RAUL if I am able to find a SNF placement who is willing to accept (+) COVID and dialysis patients. Per KEVIN Quiñonez she will follow up with MD. Will be contacting facilities tomorrow who are willing to do RAUL.
[2020-03-17 17:15] VITALS: BP 125/63
[2020-03-17 22:00] VITALS: BP 128/55
[2020-03-17] MEDS: GABAPENTIN 300 MG CAP PO SCH (22:56)
[2020-03-17] MEDS: ATORVASTATIN 20 MG TAB PO SCH (22:56)
[2020-03-18] MEDS: InsuLIN REG 1unit/0.01ml Soln (100units/ml) SC SCH ×4 (06:33→22:00)
[2020-03-18] MEDS: ACCU-CHEK COMFORT CURVE STRIP VI SCH ×4 (06:34→22:16)
[2020-03-18] MEDS: SODIUM CHLOR 0.9% PF (SALINE LOCK) 10ML VIAL/SYR IV SCH ×3 (06:35→22:06)
[2020-03-18] MEDS: HEPARIN SODIUM (PORCINE) 5000 UNITS/ML 1ML VIAL SC SCH ×3 (06:57→22:14)
--- NOTE | 2020-03-18 07:35 | NUR ---
Opening Shift Note Assumed care of patient, awake and alert. No s/s of SOB or pain. Patient respirations even and non labored on 1L NC. Bed is locked in lowest position, 2 side rails up and call light within reach. Instructed on POC and to call for assist PRN, will continue to monitor for changes Q1hr and PRN.
--- NOTE | 2020-03-18 07:41 | NUR ---
CLOSING NOTE- NOC SHIFT PATIENT RESTING IN BED. NO S/X OF DISTRESS, SOB OR PAIN.
[2020-03-18 08:24] LABS: Basophils # (auto) 0.1 10 ^3/uL (0-0.2); Basophils % (auto) 0.5 % (0.0-2.0); Hematocrit 23.8 % (36.0-46.0); Hemoglobin 7.4 g/dL (12.2-16.2); Red Blood Cells 2.67 10^6/uL (4.0-5.20)
[2020-03-18 08:26] LABS: Eosinophils # (auto) 0.1 10 ^3/uL (0-0.8); Eosinophils % (auto) 0.9 % (0.0-7.0); Lymphocytes # (auto) 0.6 10 ^3/uL (0.4-5.4); Lymphocytes % (auto) 4.3 % (10.0-50.0); Mean Corpuscular Hemoglobin 27.8 pg (28.0-32.0); Mean Corpuscular Hgb Conc. 31.2 g/dL (32.0-36.0); Mean Corpuscular Volume 89.1 fL (80.0-100.0); Monocytes % (auto) 6.9 % (0.0-12.0); Neutrophils # (auto) 12.6 10 ^3/uL (1.6-8.6); Neutrophils % (auto) 87.4 % (37.0-80.0); Platelet Count (auto) 138 10^3/uL (140-450); White Blood Cell 14.4 10^3/uL (4.4-10.8)
[2020-03-18 08:29] LABS: Red Cell Distribution Width 20.9 % (11.8-14.3)
[2020-03-18 08:43] LABS: Calcium 7.8 mg/dL (8.5-10.1); Potassium 4.9 mmol/L (3.5-5.1)
[2020-03-18 08:47] LABS: BUN/Creatinine Ratio 6.2
[2020-03-18 09:00] VITALS: BP 128/55
[2020-03-18] MEDS: amLODIPine BESYLATE 5 MG TAB PO SCH (10:00)
[2020-03-18] MEDS: SEVELAMER 800 MG TAB PO SCH ×3 (10:21→18:00)
[2020-03-18] MEDS: FERROUS SULFATE 325 MG TAB PO SCH (10:21)
[2020-03-18] MEDS: FAMOTIDINE 20 MG TAB PO SCH (10:21)
[2020-03-18] MEDS: ASPirin 81 mg TAB PO SCH (10:21)
[2020-03-18] MEDS: ALLOPURINOL 100 MG TAB PO SCH (10:22)
[2020-03-18] MEDS: MULTIPLE VITAMIN TAB PO SCH (10:22)
[2020-03-18] MEDS: CARVEDILOL 12.5 MG TAB PO SCH ×2 (10:22→22:07)
[2020-03-18 12:58] VITALS: BP 129/51
--- NOTE | 2020-03-18 16:25 | NUR ---
D/C Planning Contact [facility], [facility], [facility] and [facility] who advised me they are not taking any new patients at this time. [facility] and [facility] are taking Covid patients and advised me to fax clinical information. Pending acceptance. Will follow up in the morning.
[2020-03-18 17:00] VITALS: BP 132/57
[2020-03-18] MEDS ORDERED: SODIUM CHL 0.9% 1000 ML BAG XX ONE (19:45)
[2020-03-18] MEDS ORDERED: EPOETIN ALFA 10,000 UNIT/1 ML VIAL SC ONE (21:00)
[2020-03-18] MEDS: GABAPENTIN 300 MG CAP PO SCH (22:07)
[2020-03-18] MEDS: ATORVASTATIN 20 MG TAB PO SCH (22:07)
[2020-03-19] MEDS: ACCU-CHEK COMFORT CURVE STRIP VI SCH ×4 (05:19→22:02)
[2020-03-19] MEDS: InsuLIN REG 1unit/0.01ml Soln (100units/ml) SC SCH ×4 (05:26→22:00)
[2020-03-19] MEDS: HEPARIN SODIUM (PORCINE) 5000 UNITS/ML 1ML VIAL SC SCH ×3 (05:26→22:06)
[2020-03-19] MEDS: SODIUM CHLOR 0.9% PF (SALINE LOCK) 10ML VIAL/SYR IV SCH ×3 (05:30→22:01)
[2020-03-19 06:17] LABS: Hemoglobin 7.1 g/dL (12.2-16.2); Neutrophils # (auto) 10.1 10 ^3/uL (1.6-8.6)
[2020-03-19 06:20] LABS: Basophils # (auto) 0 10 ^3/uL (0-0.2); Basophils % (auto) 0.4 % (0.0-2.0); Eosinophils # (auto) 0.1 10 ^3/uL (0-0.8); Eosinophils % (auto) 1.1 % (0.0-7.0); Hematocrit 23.5 % (36.0-46.0); Lymphocytes # (auto) 0.5 10 ^3/uL (0.4-5.4); Lymphocytes % (auto) 4.7 % (10.0-50.0); Mean Corpuscular Hemoglobin 27.2 pg (28.0-32.0); Mean Corpuscular Hgb Conc. 30.2 g/dL (32.0-36.0); Mean Corpuscular Volume 89.9 fL (80.0-100.0); Monocytes # (auto) 0.9 10 ^3/uL (0-1.3); Monocytes % (auto) 7.6 % (0.0-12.0); Neutrophils % (auto) 86.2 % (37.0-80.0); Platelet Count (auto) 132 10^3/uL (140-450); Red Blood Cells 2.61 10^6/uL (4.0-5.20); White Blood Cell 11.7 10^3/uL (4.4-10.8)
[2020-03-19 06:28] LABS: Red Cell Distribution Width 20.5 % (11.8-14.3)
[2020-03-19 06:42] LABS: Calcium 7.9 mg/dL (8.5-10.1); Potassium 4.2 mmol/L (3.5-5.1)
[2020-03-19 06:45] LABS: BUN/Creatinine Ratio 4.7
--- NOTE | 2020-03-19 07:00 | NUR ---
OPENING SHIFT NOTE RECEIVED REPORT ON THE PATIENT. AWAKE LYING IN BED. PATIENT SHOWS NO SIGNS OF DISTRESS. DISCUSSED THE PLAN OF CARE WITH THE PATIENT. BED IN LOWEST POSITION, SIDE RAILS UP X2, AND THE CALL LIGHT IS WITHIN REACH.
[2020-03-19 09:00] VITALS: BP 130/63
[2020-03-19] MEDS: CARVEDILOL 12.5 MG TAB PO SCH ×2 (10:07→22:01)
[2020-03-19] MEDS: ASPirin 81 mg TAB PO SCH (10:07)
[2020-03-19] MEDS: SEVELAMER 800 MG TAB PO SCH ×3 (10:07→17:07)
[2020-03-19] MEDS: amLODIPine BESYLATE 5 MG TAB PO SCH (10:08)
[2020-03-19] MEDS: ALLOPURINOL 100 MG TAB PO SCH (10:08)
[2020-03-19] MEDS: MULTIPLE VITAMIN TAB PO SCH (10:08)
--- NOTE | 2020-03-19 11:04 | NUR ---
D/C Planning Placed follow up called to [facility] and [facility] and both facilities are unable to accommodate patient needs and cannot do an RAUL at this time.
[2020-03-19 13:00] VITALS: BP 130/53
--- NOTE | 2020-03-19 13:20 | NUR ---
COVID SWAB WALKED TO LAB.
--- NOTE | 2020-03-19 15:32 | NUR ---
Nutrition Followup Notes Wt: 55.6 kg Pt is positive for COVID. Pt is active for HD, order placed on 03/18. Pt is with a Renal Standard diet, with a fair appetite aeb ave 50% x 6 per RN doc Est Energy needs BW 52 [id number] kcals (30-33kcal/kgBW), Est Protein needs: 62-78 gms/day (1.2-1.5 gm/kgBW r/t HD severe hypoalb). Will continue to monitor and reassess prn. LABS: BUN 32 H CREAT 6.75 H CA 7.9 L ALB 2.1 L, Gluc 149 H GI: Pt had 1 BM on 03/11 per RN doc. BS: 12 high risk. Refer to wound assessment report for further details. PES: Altered nutrition related lab values rt current chronic medical condition aeb elev RFT A1C severe hypoalb Comments Will continue to monitor PO status, skin status, pertinent labs and weight trends. Will f/u in 3-5 days 1) Consider CCHO 60 gm along with current diet. 2) Consider Prostat 1 packet bid. 3) Refer to CDE on DC. 4) Continue current plan fo care
[2020-03-19 17:00] VITALS: BP 126/54
[2020-03-19] MEDS: ATORVASTATIN 20 MG TAB PO SCH (22:02)
[2020-03-19] MEDS: GABAPENTIN 300 MG CAP PO SCH (22:02)
[2020-03-20] VITALS (7 sets, daily range): BP systolic 118–149; BP diastolic 49–69
[2020-03-20] MEDS: InsuLIN REG 1unit/0.01ml Soln (100units/ml) SC SCH ×4 (06:00→22:00)
[2020-03-20] MEDS: ACCU-CHEK COMFORT CURVE STRIP VI SCH ×4 (06:00→22:43)
[2020-03-20] MEDS: SODIUM CHLOR 0.9% PF (SALINE LOCK) 10ML VIAL/SYR IV SCH ×3 (06:00→22:42)
[2020-03-20] MEDS: HEPARIN SODIUM (PORCINE) 5000 UNITS/ML 1ML VIAL SC SCH ×3 (06:01→22:43)
[2020-03-20 07:50] LABS: Basophils # (auto) 0.1 10 ^3/uL (0-0.2); Eosinophils # (auto) 0.1 10 ^3/uL (0-0.8); Lymphocytes # (auto) 0.6 10 ^3/uL (0.4-5.4); Monocytes # (auto) 0.9 10 ^3/uL (0-1.3); Monocytes % (auto) 7.1 % (0.0-12.0)
[2020-03-20 07:51] LABS: Basophils % (auto) 0.5 % (0.0-2.0); Hematocrit 22.8 % (36.0-46.0); Lymphocytes % (auto) 4.4 % (10.0-50.0); Mean Corpuscular Hemoglobin 27.6 pg (28.0-32.0); Mean Corpuscular Hgb Conc. 30.6 g/dL (32.0-36.0); Neutrophils # (auto) 10.9 10 ^3/uL (1.6-8.6); Platelet Count (auto) 140 10^3/uL (140-450); Red Blood Cells 2.53 10^6/uL (4.0-5.20); White Blood Cell 12.6 10^3/uL (4.4-10.8)
[2020-03-20 07:55] LABS: Red Cell Distribution Width 20.7 % (11.8-14.3)
[2020-03-20 07:58] LABS: Calcium 8.1 mg/dL (8.5-10.1); Potassium 4.7 mmol/L (3.5-5.1)
[2020-03-20] MEDS: SEVELAMER 800 MG TAB PO SCH ×3 (09:35→17:56)
[2020-03-20] MEDS: FAMOTIDINE 20 MG TAB PO SCH (09:36)
[2020-03-20] MEDS: FERROUS SULFATE 325 MG TAB PO SCH (09:37)
[2020-03-20] MEDS: ASPirin 81 mg TAB PO SCH (09:37)
[2020-03-20] MEDS: amLODIPine BESYLATE 5 MG TAB PO SCH (09:38)
[2020-03-20] MEDS: ALLOPURINOL 100 MG TAB PO SCH (09:38)
[2020-03-20] MEDS: CARVEDILOL 12.5 MG TAB PO SCH ×2 (09:38→22:41)
[2020-03-20] MEDS: MULTIPLE VITAMIN TAB PO SCH (09:38)
--- NOTE | 2020-03-20 09:47 | NUR ---
INFORMED DR MCKENZIE OF THE 7.0 HGB. NEW ORDERS RECEIVED.
[2020-03-20] MEDS ORDERED: SODIUM CHL 0.9% 1000 ML BAG XX ONE (13:00)
--- NOTE | 2020-03-20 14:36 | NUR ---
D/C planning Received a call from Felipe with [facility] advising me they are now accepting patient on dialysis under [facility] and they are able to accept patient and to fax order again. Faxed clinical information to [facility]. Per Hazel with [facility] they can accept patient and will provide bed once authorization is obtain. Contact KEVIN Quiñonez with [facility] advising her [facility] is now accepting patient on Dialysis and are willing to accept. Per KEVIN Quiñonez she will contact me with authorization #.
--- NOTE | 2020-03-20 16:00 | NUR ---
D/C PLANNING Received a call from KEVIN Quiñonez with [facility] advising me authorization for [facility] is [id number] and for [facility] transportation is [id number]. Placed follow up called to Hazel with [facility] to provide her with verbal authorization and [facility] dialysis chair time M, W, F 10-4pm. Per Hazel with [facility] patient has been accepted to room 202 bed 2 accepting MD, Dr. Truman Guzman. Contact [facility] transportation , spoke to [facility] advising him to arranged transportation at 6pm via gurney with oxygen. Per [facility] with [facility] transportation they will transport patient at 6pm. Informed NGHIA Bradford covering NGHIA Cabezas.
--- NOTE | 2020-03-20 17:15 | NUR ---
DISCHARGE WILL BE 03/21 SO THAT THE PATIENT CAN RECEIVE HER UNIT OF BLOOD. CALLED [facility] AND PUT ON WILL CALL FOR 03/21. ALSO CALLED AND SPOKE TO RAFAEL AT [facility] AND LET HER KNOW THE PATIENT WILL BE THERE TOMORROW MORNING.
--- NOTE | 2020-03-20 19:20 | NUR ---
Opening Shift Note Assumed care of patient, awake and alert. No S/S of distress/SOB or pain. Pt receiving O2 at 1L via nasal cannula, saturating at 91%. Safety measures in place, bed in lowest locked position, bed rails raised x2, call light within reach. All needs addressed at this time. Instructed on POC and to call for assist PRN, will continue to monitor for changes Q1hr and PRN.
[2020-03-20] MEDS ORDERED: EPOETIN ALFA 10,000 UNIT/1 ML VIAL SC ONE (21:00)
[2020-03-20] MEDS: ATORVASTATIN 20 MG TAB PO SCH (22:42)
[2020-03-20] MEDS: GABAPENTIN 300 MG CAP PO SCH (22:42)
[2020-03-21 00:10] VITALS: BP 129/52
[2020-03-21 00:35] VITALS: BP 132/56
[2020-03-21 03:06] VITALS: BP 140/57
[2020-03-21 05:00] VITALS: BP 140/57
[2020-03-21] MEDS: SODIUM CHLOR 0.9% PF (SALINE LOCK) 10ML VIAL/SYR IV SCH (06:26)
[2020-03-21] MEDS: HEPARIN SODIUM (PORCINE) 5000 UNITS/ML 1ML VIAL SC SCH (06:29)
[2020-03-21] MEDS: ACCU-CHEK COMFORT CURVE STRIP VI SCH ×2 (06:30→11:30)
[2020-03-21] MEDS: InsuLIN REG 1unit/0.01ml Soln (100units/ml) SC SCH ×2 (06:31→12:00)
--- NOTE | 2020-03-21 07:00 | NUR ---
Opening Shift Note Assumed care of patient, awake and alert. A/O X 3. Patient on 1L NC. No S/S of distress/SOB or pain. Lungs are diminished on the left and coarse crackles heard on the right. Skin is warm with sacral wounds clean and dry with Optifoam present. Instructed on POC including discharge to [facility] acute facility. Assisted with the bedpan with < 50 mL urine noted. Instructed to call for assist PRN. patient verbalized understanding. Safety measures are in place and the call light is within reach of the patient. Will continue to monitor for changes Q1hr and PRN.
--- NOTE | 2020-03-21 07:12 | NUR ---
Respiratory note: POX CHECK. PT AWAKE AND ALERT NO RESP DISTRESS NOTED. HR 86, RR 16, SPO2 90% ON 1L N/C
[2020-03-21 08:00] VITALS: BP 124/54
[2020-03-21 08:17] LABS: Basophils # (auto) 0.1 10 ^3/uL (0-0.2); Basophils % (auto) 0.6 % (0.0-2.0); Eosinophils # (auto) 0.1 10 ^3/uL (0-0.8); Eosinophils % (auto) 0.6 % (0.0-7.0); Hematocrit 27.8 % (36.0-46.0); Hemoglobin 8.7 g/dL (12.2-16.2); Lymphocytes # (auto) 0.6 10 ^3/uL (0.4-5.4); Lymphocytes % (auto) 3.8 % (10.0-50.0); Mean Corpuscular Hemoglobin 27.8 pg (28.0-32.0); Mean Corpuscular Hgb Conc. 31.2 g/dL (32.0-36.0); Mean Corpuscular Volume 89.1 fL (80.0-100.0); Monocytes % (auto) 6.5 % (0.0-12.0); Neutrophils # (auto) 13.9 10 ^3/uL (1.6-8.6); Neutrophils % (auto) 88.5 % (37.0-80.0); Platelet Count (auto) 170 10^3/uL (140-450); Red Blood Cells 3.12 10^6/uL (4.0-5.20); Red Cell Distribution Width 18.7 % (11.8-14.3); White Blood Cell 15.7 10^3/uL (4.4-10.8)
[2020-03-21] MEDS: ACETAMINOPHEN 325 MG TAB PO PRN (08:30)
--- NOTE | 2020-03-21 08:30 | NUR ---
Change Director Received a page from NGHIA Cabezas on 03/20/20 after hours advising me patient patient is needing one Unit of blood and discharge will have to be for 03/21/20. Advised NGHIA Cabezas on 03/20/20 to follow up with [facility] to informed them patient will be discharge in the morning. NGHIA Cabezas verbalize understanding. Placed call to [facility] transportation spoke to Jorge requesting for a 12 noon brass pickler via gurney with oxygen. Per [facility] with [facility] transportation the earliest they can transport is at 16:00. Informed NGHIA Mathis.
[2020-03-21 09:05] LABS: Potassium 4.4 mmol/L (3.5-5.1)
[2020-03-21 09:15] LABS: BUN/Creatinine Ratio 4.7
[2020-03-21] MEDS: ALLOPURINOL 100 MG TAB PO SCH (09:30)
[2020-03-21] MEDS: SEVELAMER 800 MG TAB PO SCH ×2 (09:30→12:00)
[2020-03-21] MEDS: amLODIPine BESYLATE 5 MG TAB PO SCH (09:30)
[2020-03-21] MEDS: CARVEDILOL 12.5 MG TAB PO SCH (09:30)
[2020-03-21] MEDS: MULTIPLE VITAMIN TAB PO SCH (09:30)
[2020-03-21] MEDS: ASPirin 81 mg TAB PO SCH (09:30)
[2020-03-21 12:00] VITALS: BP 137/61
--- NOTE | 2020-03-21 13:10 | NUR ---
Patient transported off the unit Report called into [facility], spoke with Bella. Vitals BP 137/61, HR 84 RR 14, Temp 98.4, O2 90%. Patient transported with O2. Discharge instructions given as ordered. All questions and concerns addressed. Patient verbalized understanding. IV removed with catheter intact, pressure dressing applied. [facility] provided the transfer. Telemetry unit returned to ICU. Patient transported with all personal belongings. No distress noted at time of departure.
== END 2020-03-21 13:25 | DRG 177 ==
LOC: ER 14:56 → TELE 14:57 → TELE-WESTW 02-29 15:49 → TELE-E-ADS 03-01 02:13 → TELE-CENTR 03-04 17:28
PROVIDERS: ADMIT Nurse Practitioner Family; ATTEND Internal Medicine
PROC: 5A1D70Z Performance of Urinary Filtration, Intermittent, Less than 6 Hours Per Day (ICD-10-PCS; principal; 2020-03-01)
PROC: 5A1D70Z Performance of Urinary Filtration, Intermittent, Less than 6 Hours Per Day (ICD-10-PCS; 2020-03-02)
PROC: 5A1D70Z Performance of Urinary Filtration, Intermittent, Less than 6 Hours Per Day (ICD-10-PCS; 2020-03-06)
PROC: 30233N1 Transfusion of Nonautologous Red Blood Cells into Peripheral Vein, Percutaneous Approach (ICD-10-PCS; 2020-03-09)
PROC: 5A1D70Z Performance of Urinary Filtration, Intermittent, Less than 6 Hours Per Day (ICD-10-PCS; 2020-03-09)
PROC: 5A1D70Z Performance of Urinary Filtration, Intermittent, Less than 6 Hours Per Day (ICD-10-PCS; 2020-03-12)
PROC: 5A1D70Z Performance of Urinary Filtration, Intermittent, Less than 6 Hours Per Day (ICD-10-PCS; 2020-03-15)
PROC: 5A1D70Z Performance of Urinary Filtration, Intermittent, Less than 6 Hours Per Day (ICD-10-PCS; 2020-03-18)
PROC: 5A1D70Z Performance of Urinary Filtration, Intermittent, Less than 6 Hours Per Day (ICD-10-PCS; 2020-03-20)
DX: U07.1 COVID-19 (principal); J12.89 Other viral pneumonia; N18.6 End stage renal disease; J96.21 Acute and chronic respiratory failure with hypoxia; N17.9 Acute kidney failure, unspecified; I31.3 Pericardial effusion (noninflammatory); I13.2 Hypertensive heart and chronic kidney disease with heart failure and with stage 5 chronic kidney disease, or end stage renal disease; E44.1 Mild protein-calorie malnutrition; J91.8 Pleural effusion in other conditions classified elsewhere; I50.30 Unspecified diastolic (congestive) heart failure; I95.9 Hypotension, unspecified; R62.7 Adult failure to thrive; S46.911A Strain of unspecified muscle, fascia and tendon at shoulder and upper arm level, right arm, initial encounter; D63.8 Anemia in other chronic diseases classified elsewhere; E88.09 Other disorders of plasma-protein metabolism, not elsewhere classified; E78.5 Hyperlipidemia, unspecified; D50.9 Iron deficiency anemia, unspecified; K21.9 Gastro-esophageal reflux disease without esophagitis; I25.10 Atherosclerotic heart disease of native coronary artery without angina pectoris; E11.22 Type 2 diabetes mellitus with diabetic chronic kidney disease; W18.39XA Other fall on same level, initial encounter; E11.40 Type 2 diabetes mellitus with diabetic neuropathy, unspecified; R29.6 Repeated falls; Z80.1 Family history of malignant neoplasm of trachea, bronchus and lung; Z99.2 Dependence on renal dialysis; Z82.49 Family history of ischemic heart disease and other diseases of the circulatory system; Z83.3 Family history of diabetes mellitus; Z90.49 Acquired absence of other specified parts of digestive tract; Y93.89 Activity, other specified; Y92.098 Other place in other non-institutional residence as the place of occurrence of the external cause; Y99.8 Other external cause status; Z88.2 Allergy status to sulfonamides; Z88.5 Allergy status to narcotic agent; Z88.8 Allergy status to other drugs, medicaments and biological substances; Z68.20 Body mass index [BMI] 20.0-20.9, adult
CPT/HCPCS: 36415; 70450; 71045; 80048; 80053; 80061; 82306; 82728; 82962; 83036; 83540; 83550; 83615; 83735; 83880; 83970; 84100; 84443; 84484; 85014; 85018; 85025; 85379; 85610; 85730; 86141; 86850; 86870; 86900; 86901; 86920; 86922; 87040; 87426; 90935; 93005; 93306; 93970; 96361; 96372; 96374; 97110; 97116; 97163; 97530; C9113; G0378; J0696; J0885; J1100; J1642; J1815; J2405; J7060

== ENCOUNTER 2021-04-13 12:26 | Inpatient (IN) | payer OTHER, MEDICAID ==
[~2021-04-13] VITALS: Ht 157.5 cm; Wt 50.9 kg
[2021-04-13] MEDS: ACCU-CHEK COMFORT CURVE STRIP VI SCH (02:18)
[2021-04-13] MEDS: InsuLIN REG 1unit/0.01ml Soln (100units/ml) SC SCH (02:20)
[~2021-04-13 12:26] MED LIST changes: +ASPI1CHW13 PO; -ASPI81CH58 PO
[2021-04-13 14:23] LABS: Basophils # (auto) 0.1 10 ^3/uL (0-0.2); Basophils % (auto) 0.7 % (0.0-2.0); Eosinophils # (auto) 0.3 10 ^3/uL (0-0.8); Eosinophils % (auto) 2.4 % (0.0-7.0); Hematocrit 38.7 % (36.0-46.0); Hemoglobin 11.6 g/dL (12.2-16.2); Lymphocytes # (auto) 0.7 10 ^3/uL (0.4-5.4); Lymphocytes % (auto) 5.1 % (10.0-50.0); Mean Corpuscular Hemoglobin 30.2 pg (28.0-32.0); Mean Corpuscular Hgb Conc. 29.9 g/dL (32.0-36.0); Mean Corpuscular Volume 101.1 fL (80.0-100.0); Monocytes # (auto) 0.7 10 ^3/uL (0-1.3); Neutrophils # (auto) 11.6 10 ^3/uL (1.6-8.6); Neutrophils % (auto) 86.8 % (37.0-80.0); Red Blood Cells 3.83 10^6/uL (4.0-5.20); Red Cell Distribution Width 16.3 % (11.8-14.3); White Blood Cell 13.3 10^3/uL (4.4-10.8)
[2021-04-13 14:29] LABS: Albumin 3.4 g/dL (3.4-5.0); Calcium 7.8 mg/dL (8.5-10.1); Potassium 4.7 mmol/L (3.5-5.1)
[2021-04-13 14:34] LABS: BUN/Creatinine Ratio 8.3; Bilirubin, Total 0.5 mg/dL (0.2-1.0)
[2021-04-13] MEDS ORDERED: ONDANSETRON HCL 4 MG/2 ML VIAL IV PRN (21:15)
[2021-04-13] MEDS ORDERED: MORPHINE SULFATE INJECTION 2 MG/ML SYRG IV PRN (21:15)
[2021-04-13] MEDS ORDERED: NITROGLYCERIN 0.4 MG SL TAB SL PRN (21:15)
[2021-04-13] MEDS ORDERED: DEXTROSE (50%) 50ML SYRG IV PRN (21:15)
[2021-04-13] MEDS ORDERED: ACETAMINOPHEN 325 MG TAB PO PRN (21:15)
[2021-04-13] MEDS ORDERED: FUROSEMIDE 40 MG/4 ML VIAL IV ONE (21:15)
[2021-04-13] MEDS: ATORVASTATIN 20 MG TAB PO SCH (22:00)
[2021-04-13] MEDS: CARVEDILOL 12.5 MG TAB PO SCH (23:00)
[2021-04-13] MEDS: hydrALAZINE HCL 25 MG TAB PO SCH (23:00)
[2021-04-13 23:15] VITALS: BP 111/49
[2021-04-14] VITALS (7 sets, daily range): BP systolic 111–134; BP diastolic 40–62
[2021-04-14 06:11] LABS: Basophils # (auto) 0.1 10 ^3/uL (0-0.2); Monocytes # (auto) 0.6 10 ^3/uL (0-1.3); Red Blood Cells 3.69 10^6/uL (4.0-5.20)
[2021-04-14 06:15] LABS: Eosinophils # (auto) 0.2 10 ^3/uL (0-0.8); Eosinophils % (auto) 2.2 % (0.0-7.0); Hematocrit 37.4 % (36.0-46.0); Hemoglobin 11.4 g/dL (12.2-16.2); Lymphocytes # (auto) 0.7 10 ^3/uL (0.4-5.4); Lymphocytes % (auto) 5.9 % (10.0-50.0); Mean Corpuscular Hemoglobin 30.9 pg (28.0-32.0); Mean Corpuscular Hgb Conc. 30.5 g/dL (32.0-36.0); Mean Corpuscular Volume 101.5 fL (80.0-100.0); Neutrophils # (auto) 9.6 10 ^3/uL (1.6-8.6); Neutrophils % (auto) 85.9 % (37.0-80.0); Nucleated Red Blood Cells % 0.1 %; Red Cell Distribution Width 15.9 % (11.8-14.3); White Blood Cell 11.2 10^3/uL (4.4-10.8)
[2021-04-14 06:34] LABS: Potassium 5.2 mmol/L (3.5-5.1)
[2021-04-14 06:46] LABS: Albumin 3.2 g/dL (3.4-5.0); BUN/Creatinine Ratio 8.3; Calcium 8.1 mg/dL (8.5-10.1)
[2021-04-14 06:49] LABS: Bilirubin, Total 0.5 mg/dL (0.2-1.0); Total Protein 6.5 g/dL (6.4-8.2)
[2021-04-14] MEDS: InsuLIN REG 1unit/0.01ml Soln (100units/ml) SC SCH ×4 (07:00→22:00)
[2021-04-14 08:44] LABS: INR 1.2 (0.9-1.15); Partial Thromboplastin Time 36.5 sec (23.6-33.0)
[2021-04-14] MEDS: hydrALAZINE HCL 25 MG TAB PO SCH ×2 (10:00→23:44)
[2021-04-14] MEDS: ASPirin 81 mg TAB PO SCH (10:00)
[2021-04-14] MEDS: PANTOPRAZOLE 40 MG TAB PO SCH (10:00)
[2021-04-14] MEDS: ACCU-CHEK COMFORT CURVE STRIP VI SCH ×4 (10:00→23:46)
[2021-04-14] MEDS: CARVEDILOL 12.5 MG TAB PO SCH ×2 (10:00→23:45)
[2021-04-14] MEDS ORDERED: METOPROLOL TARTRATE 1MG/1ML-5ML VIAL IV PRN (12:30)
[2021-04-14] MEDS ORDERED: cefTRIAXone 1GM/50ML D5W 50 ML IV ONE (12:45)
[2021-04-14] MEDS ORDERED: SODIUM CHL 0.9% 1000 ML BAG XX ONE (16:15)
[2021-04-14] MEDS: ATORVASTATIN 20 MG TAB PO SCH (23:45)
[2021-04-15] VITALS (7 sets, daily range): BP systolic 110–144; BP diastolic 49–72
[2021-04-15 06:05] LABS: Basophils # (auto) 0.1 10 ^3/uL (0-0.2); Eosinophils # (auto) 0.2 10 ^3/uL (0-0.8); Eosinophils % (auto) 1.9 % (0.0-7.0); Hematocrit 34.3 % (36.0-46.0); Hemoglobin 10.7 g/dL (12.2-16.2); Lymphocytes # (auto) 0.7 10 ^3/uL (0.4-5.4); Lymphocytes % (auto) 5.8 % (10.0-50.0); Mean Corpuscular Hemoglobin 30.9 pg (28.0-32.0); Mean Corpuscular Hgb Conc. 31.4 g/dL (32.0-36.0); Mean Corpuscular Volume 98.5 fL (80.0-100.0); Monocytes # (auto) 0.3 10 ^3/uL (0-1.3); Neutrophils % (auto) 88.3 % (37.0-80.0); Red Blood Cells 3.48 10^6/uL (4.0-5.20); Red Cell Distribution Width 15.8 % (11.8-14.3); White Blood Cell 11.3 10^3/uL (4.4-10.8)
[2021-04-15 06:15] LABS: Potassium 4.3 mmol/L (3.5-5.1)
[2021-04-15 06:17] LABS: BUN/Creatinine Ratio 8.1; Calcium 7.8 mg/dL (8.5-10.1)
[2021-04-15] MEDS: InsuLIN REG 1unit/0.01ml Soln (100units/ml) SC SCH ×4 (06:41→22:00)
[2021-04-15] MEDS: ACCU-CHEK COMFORT CURVE STRIP VI SCH ×4 (06:41→23:22)
[2021-04-15] MEDS: ASPirin 81 mg TAB PO SCH (09:35)
[2021-04-15] MEDS: cefTRIAXone 1GM/50ML D5W 50 ML IV SCH (09:35)
[2021-04-15] MEDS: hydrALAZINE HCL 25 MG TAB PO SCH ×2 (09:35→23:23)
[2021-04-15] MEDS: CARVEDILOL 12.5 MG TAB PO SCH ×2 (09:36→23:21)
[2021-04-15] MEDS: PANTOPRAZOLE 40 MG TAB PO SCH (09:36)
[2021-04-15] MEDS: ATORVASTATIN 20 MG TAB PO SCH (23:22)
[2021-04-16 05:00] VITALS: BP 135/61
[2021-04-16] MEDS: ACCU-CHEK COMFORT CURVE STRIP VI SCH ×2 (06:57→11:06)
[2021-04-16] MEDS: InsuLIN REG 1unit/0.01ml Soln (100units/ml) SC SCH ×2 (06:57→11:06)
[2021-04-16 08:00] VITALS: BP 136/57
[2021-04-16] MEDS: cefTRIAXone 1GM/50ML D5W 50 ML IV SCH (09:00)
[2021-04-16 09:05] VITALS: BP 136/57
[2021-04-16] MEDS: PANTOPRAZOLE 40 MG TAB PO SCH (09:20)
[2021-04-16] MEDS: hydrALAZINE HCL 25 MG TAB PO SCH (09:20)
[2021-04-16] MEDS: CARVEDILOL 12.5 MG TAB PO SCH (09:20)
[2021-04-16] MEDS: ASPirin 81 mg TAB PO SCH (09:20)
[2021-04-16 13:11] VITALS: BP 156/64
[2021-04-17] MEDS ORDERED: SODIUM CHL 0.9% 1000 ML BAG XX ONE (07:00)
[2021-04-17] MEDS ORDERED: EPOETIN ALFA-EPBX 4,000 UNIT/ML VIAL SC ONE (21:00)
== END 2021-04-16 15:31 | disposition home or self-care (01) | DRG 186 ==
LOC: EDUNIT# 12:26 → ER 12:26 → EDBD 12:26 → TELE 21:01 → TELE-CENTR 22:50
PROVIDERS: ADMIT Nurse Practitioner; ATTEND Hospitalist
PROC: 0W993ZZ Drainage of Right Pleural Cavity, Percutaneous Approach (ICD-10-PCS; principal; 2021-04-14)
PROC: 05HB33Z Insertion of Infusion Device into Right Basilic Vein, Percutaneous Approach (ICD-10-PCS; 2021-04-14)
PROC: B54MZZA Ultrasonography of Right Upper Extremity Veins, Guidance (ICD-10-PCS; 2021-04-14)
PROC: 5A09357 Assistance with Respiratory Ventilation, Less than 24 Consecutive Hours, Continuous Positive Airway Pressure (ICD-10-PCS; 2021-04-14)
PROC: 5A1D70Z Performance of Urinary Filtration, Intermittent, Less than 6 Hours Per Day (ICD-10-PCS; 2021-04-15)
DX: J90 Pleural effusion, not elsewhere classified (principal); N18.6 End stage renal disease; E43 Unspecified severe protein-calorie malnutrition; J96.21 Acute and chronic respiratory failure with hypoxia; J96.22 Acute and chronic respiratory failure with hypercapnia; I13.2 Hypertensive heart and chronic kidney disease with heart failure and with stage 5 chronic kidney disease, or end stage renal disease; J98.11 Atelectasis; I50.30 Unspecified diastolic (congestive) heart failure; G93.40 Encephalopathy, unspecified; Z68.1 Body mass index [BMI] 19.9 or less, adult; D63.1 Anemia in chronic kidney disease; E11.22 Type 2 diabetes mellitus with diabetic chronic kidney disease; E78.5 Hyperlipidemia, unspecified; E87.5 Hyperkalemia; K21.9 Gastro-esophageal reflux disease without esophagitis; Z20.822 Contact with and (suspected) exposure to COVID-19; I25.10 Atherosclerotic heart disease of native coronary artery without angina pectoris; I25.2 Old myocardial infarction; Z79.899 Other long term (current) drug therapy; Z82.49 Family history of ischemic heart disease and other diseases of the circulatory system; Z83.3 Family history of diabetes mellitus; Z86.73 Personal history of transient ischemic attack (TIA), and cerebral infarction without residual deficits; Z99.2 Dependence on renal dialysis; Z88.5 Allergy status to narcotic agent; Z88.2 Allergy status to sulfonamides; Z88.8 Allergy status to other drugs, medicaments and biological substances; Z90.49 Acquired absence of other specified parts of digestive tract
CPT/HCPCS: 36415; 36600; 70450; 71045; 76604; 76942; 80048; 80053; 82140; 82805; 82962; 83605; 83880; 84484; 85025; 85610; 85730; 87040; 87205; 87426; 89051; 90935; 93005; 94660; 96372; 96374; 97163; 99291; G0378; J0696; J1642; J1815

== ENCOUNTER 2021-04-22 16:44 | Inpatient (IN) | payer OTHER, MEDICAID ==
[~2021-04-22] VITALS: Ht 162.6 cm; Wt 50.7 kg
[~2021-04-22 16:44] MED LIST changes: -CARV6.2551 PO
[2021-04-22 18:57] LABS: Basophils # (auto) 0.2 10 ^3/uL (0-0.2); Basophils % (auto) 1.2 % (0.0-2.0); Eosinophils # (auto) 0.4 10 ^3/uL (0-0.8); Eosinophils % (auto) 2.8 % (0.0-7.0); Hematocrit 40.1 % (36.0-46.0); Hemoglobin 12.2 g/dL (12.2-16.2); Lymphocytes # (auto) 0.6 10 ^3/uL (0.4-5.4); Lymphocytes % (auto) 4.4 % (10.0-50.0); Mean Corpuscular Hemoglobin 30.1 pg (28.0-32.0); Mean Corpuscular Hgb Conc. 30.5 g/dL (32.0-36.0); Monocytes # (auto) 0.5 10 ^3/uL (0-1.3); Monocytes % (auto) 3.4 % (0.0-12.0); Neutrophils # (auto) 11.9 10 ^3/uL (1.6-8.6); Neutrophils % (auto) 88.2 % (37.0-80.0); Red Blood Cells 4.05 10^6/uL (4.0-5.20); Red Cell Distribution Width 16.5 % (11.8-14.3); White Blood Cell 13.5 10^3/uL (4.4-10.8)
[2021-04-22 19:15] LABS: Albumin 3.2 g/dL (3.4-5.0); Calcium 7.5 mg/dL (8.5-10.1); Potassium 3.6 mmol/L (3.5-5.1)
[2021-04-22 19:18] LABS: BUN/Creatinine Ratio 6.3
[2021-04-22 19:20] LABS: Bilirubin, Total 0.5 mg/dL (0.2-1.0); Total Protein 6.7 g/dL (6.4-8.2)
[2021-04-23] MEDS ORDERED: ONDANSETRON HCL 4 MG/2 ML VIAL IV PRN (01:15)
[2021-04-23] MEDS ORDERED: FUROSEMIDE 40 MG/4 ML VIAL IV ONE ×2 (01:15→12:15)
[2021-04-23] MEDS ORDERED: ACETAMINOPHEN 325 MG TAB PO PRN (01:15)
[2021-04-23] MEDS ORDERED: MORPHINE SULFATE INJECTION 2 MG/ML SYRG IV PRN (01:15)
[2021-04-23] MEDS ORDERED: DEXTROSE (50%) 50ML SYRG IV PRN (01:15)
[2021-04-23] MEDS ORDERED: NITROGLYCERIN 0.4 MG SL TAB SL PRN (01:15)
[2021-04-23 02:23] LABS: INR 1.18 (0.9-1.15); Partial Thromboplastin Time 37.1 sec (23.6-33.0)
[2021-04-23] MEDS: ACCU-CHEK COMFORT CURVE STRIP VI SCH ×4 (07:01→22:51)
[2021-04-23] MEDS: InsuLIN REG 1unit/0.01ml Soln (100units/ml) SC SCH ×4 (07:03→22:00)
[2021-04-23] MEDS: hydrALAZINE HCL 25 MG TAB PO SCH ×2 (09:15→22:50)
[2021-04-23] MEDS: CARVEDILOL 12.5 MG TAB PO SCH ×2 (09:16→22:50)
[2021-04-23] MEDS: amLODIPine BESYLATE 5 MG TAB PO SCH (09:17)
[2021-04-23] MEDS: PANTOPRAZOLE 40 MG TAB PO SCH (09:17)
[2021-04-23] MEDS ORDERED: FUROSEMIDE 40 MG TAB PO SCH (10:00)
[2021-04-23 13:48] LABS: INR 1.14 (0.9-1.15); Partial Thromboplastin Time 35.9 sec (23.6-33.0)
[2021-04-23 13:51] LABS: Calcium 7.8 mg/dL (8.5-10.1); Potassium 3.8 mmol/L (3.5-5.1)
[2021-04-23 13:57] LABS: Albumin 3.2 g/dL (3.4-5.0); BUN/Creatinine Ratio 5.9; Bilirubin, Total 0.5 mg/dL (0.2-1.0); Magnesium 3.1 mg/dL (1.6-2.6)
[2021-04-23] MEDS: FUROSEMIDE 40 MG/4 ML VIAL IV SCH (18:12)
[2021-04-23] MEDS ORDERED: ATORVASTATIN 20 MG TAB PO SCH (22:00)
[2021-04-24] VITALS (28 sets, daily range): BP systolic 82–135; BP diastolic 49–76
[2021-04-24] MEDS: FUROSEMIDE 40 MG/4 ML VIAL IV SCH (06:43)
[2021-04-24] MEDS: InsuLIN REG 1unit/0.01ml Soln (100units/ml) SC SCH ×3 (06:43→21:28)
[2021-04-24] MEDS: ACCU-CHEK COMFORT CURVE STRIP VI SCH ×4 (06:44→21:22)
[2021-04-24] MEDS ORDERED: SODIUM CHL 0.9% 1000 ML BAG XX ONE (07:00)
[2021-04-24 08:09] LABS: Basophils # (auto) 0.2 10 ^3/uL (0-0.2); Eosinophils # (auto) 0.3 10 ^3/uL (0-0.8); Mean Corpuscular Hemoglobin 30.3 pg (28.0-32.0)
[2021-04-24 08:13] LABS: Basophils % (auto) 1.2 % (0.0-2.0); Eosinophils % (auto) 2.3 % (0.0-7.0); Hematocrit 35.7 % (36.0-46.0); Hemoglobin 10.9 g/dL (12.2-16.2); Lymphocytes # (auto) 0.7 10 ^3/uL (0.4-5.4); Lymphocytes % (auto) 5.4 % (10.0-50.0); Mean Corpuscular Hgb Conc. 30.5 g/dL (32.0-36.0); Mean Corpuscular Volume 99.4 fL (80.0-100.0); Monocytes # (auto) 0.6 10 ^3/uL (0-1.3); Monocytes % (auto) 4.4 % (0.0-12.0); Neutrophils # (auto) 11.3 10 ^3/uL (1.6-8.6); Neutrophils % (auto) 86.7 % (37.0-80.0); Nucleated Red Blood Cells % 0.1 %; Red Blood Cells 3.59 10^6/uL (4.0-5.20); White Blood Cell 13.1 10^3/uL (4.4-10.8)
[2021-04-24 08:19] LABS: Potassium 4.1 mmol/L (3.5-5.1)
[2021-04-24 08:26] LABS: Albumin 3.1 g/dL (3.4-5.0); BUN/Creatinine Ratio 5.8; Bilirubin, Total 0.5 mg/dL (0.2-1.0); Calcium 7.6 mg/dL (8.5-10.1); Total Protein 6.7 g/dL (6.4-8.2)
[2021-04-24] MEDS: hydrALAZINE HCL 25 MG TAB PO SCH (10:04)
[2021-04-24] MEDS: CARVEDILOL 12.5 MG TAB PO SCH (10:05)
[2021-04-24] MEDS: amLODIPine BESYLATE 5 MG TAB PO SCH (10:05)
[2021-04-24] MEDS: PANTOPRAZOLE 40 MG TAB PO SCH (10:05)
[2021-04-24] MEDS ORDERED: LIDOCAINE 2%HCL (LOCAL ANESTH.) INJ 20ML MDV ONE (13:29)
[2021-04-24] MEDS ORDERED: NOREPINEPHRINE 8 MG/250ML KIT 250 ML IV ONE (14:56)
[2021-04-24] MEDS ORDERED: DOPamine 1600MCG/ML D5W 250 ML IV ONE (15:08)
[2021-04-24 15:24] LABS: Basophils # (auto) 0 10 ^3/uL (0-0.2); Eosinophils # (auto) 0.1 10 ^3/uL (0-0.8); Monocytes # (auto) 0.2 10 ^3/uL (0-1.3); Red Blood Cells 0.94 10^6/uL (4.0-5.20); Red Cell Distribution Width 15.8 % (11.8-14.3); White Blood Cell 4.5 10^3/uL (4.4-10.8)
[2021-04-24 15:27] LABS: Basophils % (auto) 0.2 % (0.0-2.0); Eosinophils % (auto) 2.4 % (0.0-7.0); Hematocrit 9.9 % (36.0-46.0); Lymphocytes # (auto) 0.4 10 ^3/uL (0.4-5.4); Lymphocytes % (auto) 8.4 % (10.0-50.0); Mean Corpuscular Hemoglobin 31.2 pg (28.0-32.0); Mean Corpuscular Hgb Conc. 29.4 g/dL (32.0-36.0); Mean Corpuscular Volume 106.1 fL (80.0-100.0); Monocytes % (auto) 3.8 % (0.0-12.0); Neutrophils # (auto) 3.8 10 ^3/uL (1.6-8.6); Neutrophils % (auto) 85.2 % (37.0-80.0)
[2021-04-24 16:02] LABS: Hemoglobin 2.9 g/dL (12.2-16.2)
[2021-04-24] MEDS ORDERED: MIDAZOLAM DRIP 50 mg/50mL 50 ML IV ONE (16:18)
[2021-04-24] MEDS: MIDAZOLAM DRIP 50 mg/50mL 50 ML IV SCH (16:45)
[2021-04-24] MEDS: DOPamine 1600MCG/ML D5W 250 ML IV SCH (17:15)
[2021-04-24 20:17] LABS: Hematocrit 43.8 % (36.0-46.0); Hemoglobin 13.6 g/dL (12.2-16.2)
[2021-04-24] MEDS: NOREPINEPHRINE 8 MG/250ML KIT 250 ML IV SCH (20:39)
[2021-04-24] MEDS ORDERED: EPOETIN ALFA-EPBX 10,000 UNIT/1ML VIAL SC ONE (21:00)
[2021-04-24 21:44] LABS: Hematocrit 42.3 % (36.0-46.0); Hemoglobin 13.5 g/dL (12.2-16.2); Mean Corpuscular Hemoglobin 30.5 pg (28.0-32.0); Mean Corpuscular Hgb Conc. 31.8 g/dL (32.0-36.0); Red Blood Cells 4.41 10^6/uL (4.0-5.20); Red Cell Distribution Width 16.2 % (11.8-14.3)
[2021-04-24 21:49] LABS: White Blood Cell 36.1 10^3/uL (4.4-10.8)
[2021-04-24 21:50] LABS: Basophils % (manual) 0 (0.0-2.0); Blast Cells 0; Metamyelocytes % 0; Myelocytes % 0; Promyelocytes % 0; Reactive Lymphocytes 0
[2021-04-24 22:41] LABS: Band Neutrophils % (manual) 14; Eosinophils % (manual) 2 (0-7); Lymphocytes % (manual) 5 (10.0-50.0); Monocytes % (manual) 5 (0-12)
[2021-04-25] VITALS (87 sets, daily range): BP systolic 94–171; BP diastolic 43–77
[2021-04-25 03:34] LABS: Mean Corpuscular Hgb Conc. 32.1 g/dL (32.0-36.0)
[2021-04-25 03:38] LABS: Hemoglobin 13.1 g/dL (12.2-16.2); Mean Corpuscular Hemoglobin 30.3 pg (28.0-32.0); Mean Corpuscular Volume 94.5 fL (80.0-100.0); Red Blood Cells 4.34 10^6/uL (4.0-5.20); Red Cell Distribution Width 16.2 % (11.8-14.3)
[2021-04-25 03:47] LABS: Calcium 7.9 mg/dL (8.5-10.1); Potassium 5.2 mmol/L (3.5-5.1)
[2021-04-25 03:49] LABS: BUN/Creatinine Ratio 8.9
[2021-04-25 03:50] LABS: Basophils % (manual) 0 (0.0-2.0); Blast Cells 0; Eosinophils % (manual) 0 (0-7); Metamyelocytes % 0; Myelocytes % 0; Promyelocytes % 0; Reactive Lymphocytes 0
[2021-04-25 04:34] LABS: Band Neutrophils % (manual) 17; Lymphocytes % (manual) 6 (10.0-50.0); Monocytes % (manual) 2 (0-12)
[2021-04-25] MEDS ORDERED: CALCIUM GLUC 1,000mg/50ml-NS 50 ML IV ONE (06:45)
[2021-04-25] MEDS: ACCU-CHEK COMFORT CURVE STRIP VI SCH ×4 (06:47→22:29)
[2021-04-25] MEDS: InsuLIN REG 1unit/0.01ml Soln (100units/ml) SC SCH ×4 (06:48→22:32)
[2021-04-25] MEDS: PANTOPRAZOLE 40 MG TAB PO SCH (10:00)
[2021-04-25] MEDS: SODIUM ZIRCONIUM CYCL 10 GM PAK GT SCH ×3 (10:00→22:02)
[2021-04-25] MEDS ORDERED: VANCOMYCIN PER PHARMACY 0 MG IV SCH (11:30)
[2021-04-25] MEDS ORDERED: VANCOMYCIN 1GM/250ML 250 ML IV ONE (13:00)
[2021-04-25] MEDS: PIPERACILLIN-TAZOB 2.25GM 50 ML IV SCH (16:25)
[2021-04-25] MEDS: MIDAZOLAM DRIP 50 mg/50mL 50 ML IV SCH (16:41)
[2021-04-25] MEDS: DOPamine 1600MCG/ML D5W 250 ML IV SCH (17:15)
[2021-04-25] MEDS: NOREPINEPHRINE 8 MG/250ML KIT 250 ML IV SCH ×2 (17:15→19:40)
[2021-04-25] MEDS: Nepro With Carb Steady 1 Liter Bottle GT SCH (19:46)
[2021-04-26] VITALS (29 sets, daily range): BP systolic 83–130; BP diastolic 41–77
[2021-04-26] MEDS: PIPERACILLIN-TAZOB 2.25GM 50 ML IV SCH ×2 (04:00→16:01)
[2021-04-26 05:21] LABS: Potassium 4.4 mmol/L (3.5-5.1)
[2021-04-26 05:22] LABS: Basophils # (auto) 0.1 10 ^3/uL (0-0.2); Basophils % (auto) 0.6 % (0.0-2.0); Eosinophils # (auto) 0.1 10 ^3/uL (0-0.8); Eosinophils % (auto) 0.5 % (0.0-7.0); Hematocrit 33.1 % (36.0-46.0); Hemoglobin 10.6 g/dL (12.2-16.2); Lymphocytes # (auto) 0.6 10 ^3/uL (0.4-5.4); Lymphocytes % (auto) 2.7 % (10.0-50.0); Mean Corpuscular Hemoglobin 30.3 pg (28.0-32.0); Mean Corpuscular Hgb Conc. 32.2 g/dL (32.0-36.0); Mean Corpuscular Volume 94.1 fL (80.0-100.0); Monocytes # (auto) 1.1 10 ^3/uL (0-1.3); Monocytes % (auto) 5.1 % (0.0-12.0); Neutrophils # (auto) 19.7 10 ^3/uL (1.6-8.6); Neutrophils % (auto) 91.1 % (37.0-80.0); Nucleated Red Blood Cells % 0.1 %; Red Blood Cells 3.52 10^6/uL (4.0-5.20); Red Cell Distribution Width 15.6 % (11.8-14.3); White Blood Cell 21.6 10^3/uL (4.4-10.8)
[2021-04-26 05:29] LABS: BUN/Creatinine Ratio 9.8; Calcium 7.5 mg/dL (8.5-10.1)
[2021-04-26] MEDS: SODIUM ZIRCONIUM CYCL 10 GM PAK GT SCH ×2 (06:00→14:00)
[2021-04-26] MEDS: ACCU-CHEK COMFORT CURVE STRIP VI SCH ×4 (06:40→22:17)
[2021-04-26] MEDS: InsuLIN REG 1unit/0.01ml Soln (100units/ml) SC SCH ×4 (06:42→22:18)
[2021-04-26] MEDS: PANTOPRAZOLE 40 MG TAB PO SCH (10:00)
[2021-04-26] MEDS: MIDAZOLAM DRIP 50 mg/50mL 50 ML IV SCH (16:45)
[2021-04-26] MEDS: Nepro With Carb Steady 1 Liter Bottle GT SCH (21:00)
[2021-04-26] MEDS: DOPamine 1600MCG/ML D5W 250 ML IV SCH (21:00)
[2021-04-27] VITALS (29 sets, daily range): BP systolic 98–147; BP diastolic 42–59
[2021-04-27 03:43] LABS: Basophils # (auto) 0.1 10 ^3/uL (0-0.2); Basophils % (auto) 0.2 % (0.0-2.0); Eosinophils # (auto) 0.3 10 ^3/uL (0-0.8); Eosinophils % (auto) 1.1 % (0.0-7.0); Hematocrit 31.8 % (36.0-46.0); Hemoglobin 10.3 g/dL (12.2-16.2); Lymphocytes # (auto) 0.6 10 ^3/uL (0.4-5.4); Lymphocytes % (auto) 2.7 % (10.0-50.0); Mean Corpuscular Hemoglobin 30.3 pg (28.0-32.0); Mean Corpuscular Hgb Conc. 32.3 g/dL (32.0-36.0); Mean Corpuscular Volume 93.5 fL (80.0-100.0); Monocytes # (auto) 1.2 10 ^3/uL (0-1.3); Monocytes % (auto) 5.1 % (0.0-12.0); Neutrophils # (auto) 21.9 10 ^3/uL (1.6-8.6); Neutrophils % (auto) 90.9 % (37.0-80.0); Red Cell Distribution Width 15.6 % (11.8-14.3); White Blood Cell 24.1 10^3/uL (4.4-10.8)
[2021-04-27 03:55] LABS: Calcium 7.3 mg/dL (8.5-10.1); Potassium 4.3 mmol/L (3.5-5.1)
[2021-04-27 03:57] LABS: BUN/Creatinine Ratio 10.1
[2021-04-27 03:58] LABS: % Iron Saturation 16.5 % (15-50)
[2021-04-27] MEDS: PIPERACILLIN-TAZOB 2.25GM 50 ML IV SCH ×2 (04:00→16:00)
[2021-04-27] MEDS: ACCU-CHEK COMFORT CURVE STRIP VI SCH ×4 (06:16→21:45)
[2021-04-27] MEDS: InsuLIN REG 1unit/0.01ml Soln (100units/ml) SC SCH ×4 (06:16→21:45)
[2021-04-27] MEDS ORDERED: SODIUM CHL 0.9% 1000 ML BAG XX ONE (07:00)
[2021-04-27] MEDS: PANTOPRAZOLE 40 MG TAB PO SCH (10:00)
[2021-04-27] MEDS ORDERED: VANCOMYCIN 1GM/250ML 250 ML IV ONE (16:00)
[2021-04-27] MEDS: MIDAZOLAM DRIP 50 mg/50mL 50 ML IV SCH (16:45)
[2021-04-27] MEDS: NOREPINEPHRINE 8 MG/250ML KIT 250 ML IV SCH (17:15)
[2021-04-28] VITALS (21 sets, daily range): BP systolic 106–153; BP diastolic 48–79
[2021-04-28] MEDS: DOPamine 1600MCG/ML D5W 250 ML IV SCH ×2 (00:16→17:24)
[2021-04-28] MEDS: PIPERACILLIN-TAZOB 2.25GM 50 ML IV SCH ×2 (03:55→17:40)
[2021-04-28] MEDS: InsuLIN REG 1unit/0.01ml Soln (100units/ml) SC SCH ×4 (05:59→21:46)
[2021-04-28] MEDS: ACCU-CHEK COMFORT CURVE STRIP VI SCH ×4 (06:00→21:43)
[2021-04-28] MEDS: PANTOPRAZOLE 40 MG/10 ML VIAL INJ IV SCH (10:00)
[2021-04-28] MEDS: MIDAZOLAM DRIP 50 mg/50mL 50 ML IV SCH (16:45)
[2021-04-29] MEDS: PIPERACILLIN-TAZOB 2.25GM 50 ML IV SCH ×2 (03:45→16:57)
[2021-04-29 05:00] VITALS: BP 111/48
[2021-04-29] MEDS: DOPamine 1600MCG/ML D5W 250 ML IV SCH (05:49)
[2021-04-29] MEDS: ACCU-CHEK COMFORT CURVE STRIP VI SCH ×4 (06:42→23:05)
[2021-04-29] MEDS: InsuLIN REG 1unit/0.01ml Soln (100units/ml) SC SCH ×4 (06:43→22:59)
[2021-04-29 06:49] LABS: Basophils # (auto) 0.1 10 ^3/uL (0-0.2); Basophils % (auto) 0.2 % (0.0-2.0); Eosinophils # (auto) 0.2 10 ^3/uL (0-0.8); Eosinophils % (auto) 0.7 % (0.0-7.0); Hematocrit 35.1 % (36.0-46.0); Lymphocytes # (auto) 0.6 10 ^3/uL (0.4-5.4); Lymphocytes % (auto) 2.3 % (10.0-50.0); Mean Corpuscular Hemoglobin 29.4 pg (28.0-32.0); Mean Corpuscular Hgb Conc. 31.3 g/dL (32.0-36.0); Mean Corpuscular Volume 93.9 fL (80.0-100.0); Neutrophils % (auto) 92.8 % (37.0-80.0); Red Blood Cells 3.74 10^6/uL (4.0-5.20); Red Cell Distribution Width 15.5 % (11.8-14.3); White Blood Cell 25.9 10^3/uL (4.4-10.8)
[2021-04-29 06:56] LABS: BUN/Creatinine Ratio 9.5; Potassium 4.8 mmol/L (3.5-5.1)
[2021-04-29] MEDS ORDERED: SODIUM CHL 0.9% 1000 ML BAG XX ONE (07:00)
[2021-04-29 09:00] VITALS: BP 116/58
[2021-04-29] MEDS: PANTOPRAZOLE 40 MG/10 ML VIAL INJ IV SCH (09:21)
[2021-04-29 13:00] VITALS: BP 140/59
[2021-04-29] MEDS ORDERED: traMADol HCL 50 MG TAB PO ONE (13:15)
[2021-04-29] MEDS ORDERED: VANCOMYCIN 1GM/250ML 250 ML IV ONE (16:00)
[2021-04-29 17:00] VITALS: BP 132/63
[2021-04-29] MEDS ORDERED: traMADol HCL 50 MG TAB PO PRN (19:00)
[2021-04-29] MEDS: traMADol HCL 50 MG TAB PO PRN (20:23)
[2021-04-29] MEDS ORDERED: EPOETIN ALFA-EPBX 10,000 UNIT/1ML VIAL SC ONE (21:00)
[2021-04-29 22:00] VITALS: BP 146/54
[2021-04-30 05:57] VITALS: BP 104/80
[2021-04-30] MEDS: ACCU-CHEK COMFORT CURVE STRIP VI SCH ×4 (06:12→22:08)
[2021-04-30] MEDS: InsuLIN REG 1unit/0.01ml Soln (100units/ml) SC SCH ×4 (06:13→22:00)
[2021-04-30 06:44] LABS: Basophils # (auto) 0.1 10 ^3/uL (0-0.2); Basophils % (auto) 0.5 % (0.0-2.0); Eosinophils # (auto) 0.4 10 ^3/uL (0-0.8); Eosinophils % (auto) 1.7 % (0.0-7.0); Hematocrit 33.1 % (36.0-46.0); Hemoglobin 10.4 g/dL (12.2-16.2); Lymphocytes # (auto) 0.4 10 ^3/uL (0.4-5.4); Lymphocytes % (auto) 1.8 % (10.0-50.0); Mean Corpuscular Hemoglobin 29.5 pg (28.0-32.0); Mean Corpuscular Hgb Conc. 31.3 g/dL (32.0-36.0); Mean Corpuscular Volume 94.4 fL (80.0-100.0); Monocytes # (auto) 1.4 10 ^3/uL (0-1.3); Monocytes % (auto) 6.2 % (0.0-12.0); Neutrophils # (auto) 20.4 10 ^3/uL (1.6-8.6); Neutrophils % (auto) 89.8 % (37.0-80.0); Red Blood Cells 3.51 10^6/uL (4.0-5.20); Red Cell Distribution Width 15.4 % (11.8-14.3); White Blood Cell 22.7 10^3/uL (4.4-10.8)
[2021-04-30 06:57] LABS: Potassium 4.2 mmol/L (3.5-5.1)
[2021-04-30 07:01] LABS: BUN/Creatinine Ratio 8.6
[2021-04-30] MEDS: traMADol HCL 50 MG TAB PO PRN (08:54)
[2021-04-30] MEDS: PANTOPRAZOLE 40 MG/10 ML VIAL INJ IV SCH (09:28)
[2021-04-30 10:03] VITALS: BP 145/53
[2021-04-30 13:00] VITALS: BP 143/48
[2021-04-30 16:40] VITALS: BP 135/54
[2021-04-30] MEDS: PIPERACILLIN-TAZOB 2.25GM 50 ML IV SCH (21:46)
[2021-04-30 22:00] VITALS: BP 132/53
[2021-04-30 23:00] LABS: CRP High Sensitivity 11.6 mg/dL (< 0.3)
[2021-05-01 05:30] VITALS: BP 132/52
[2021-05-01] MEDS: InsuLIN REG 1unit/0.01ml Soln (100units/ml) SC SCH ×4 (06:09→22:16)
[2021-05-01] MEDS: ACCU-CHEK COMFORT CURVE STRIP VI SCH ×4 (06:10→23:59)
[2021-05-01] MEDS: PIPERACILLIN-TAZOB 2.25GM 50 ML IV SCH (06:34)
[2021-05-01] MEDS ORDERED: SODIUM CHL 0.9% 1000 ML BAG XX ONE (07:00)
[2021-05-01 07:04] LABS: Calcium 8.4 mg/dL (8.5-10.1); Potassium 4.5 mmol/L (3.5-5.1)
[2021-05-01 07:07] LABS: BUN/Creatinine Ratio 8.4
[2021-05-01 07:15] LABS: Hematocrit 37.9 % (36.0-46.0); Hemoglobin 11.9 g/dL (12.2-16.2); Mean Corpuscular Hemoglobin 30.1 pg (28.0-32.0); Mean Corpuscular Hgb Conc. 31.5 g/dL (32.0-36.0); Mean Corpuscular Volume 95.6 fL (80.0-100.0); Red Blood Cells 3.97 10^6/uL (4.0-5.20); Red Cell Distribution Width 15.4 % (11.8-14.3)
[2021-05-01 07:19] LABS: Basophils % (manual) 0 (0.0-2.0); Blast Cells 0; Eosinophils % (manual) 0 (0-7); Metamyelocytes % 0; Myelocytes % 0; Promyelocytes % 0; Reactive Lymphocytes 0; White Blood Cell 30.4 10^3/uL (4.4-10.8)
[2021-05-01 08:46] VITALS: BP 109/90
[2021-05-01] MEDS: PANTOPRAZOLE 40 MG/10 ML VIAL INJ IV SCH (10:00)
[2021-05-01] MEDS ORDERED: ALBUMIN 25% 100 ML IV SCH (11:00)
[2021-05-01] MEDS ORDERED: predniSONE 20 MG TAB PO ONE (11:15)
[2021-05-01 11:49] LABS: Band Neutrophils % (manual) 4; Lymphocytes % (manual) 5 (10.0-50.0); Monocytes % (manual) 7 (0-12)
[2021-05-01 11:50] VITALS: BP 132/55
[2021-05-01 17:03] VITALS: BP 161/92
[2021-05-01] MEDS ORDERED: EPOETIN ALFA-EPBX 10,000 UNIT/1ML VIAL SC ONE (21:00)
[2021-05-01 21:18] VITALS: BP 148/57
[2021-05-01] MEDS: traMADol HCL 50 MG TAB PO PRN (22:06)
[2021-05-02] MEDS ORDERED: CARVEDILOL 12.5 MG TAB PO ONE
[2021-05-02 04:38] VITALS: BP 142/57
[2021-05-02 05:58] LABS: Basophils # (auto) 0 10 ^3/uL (0-0.2); Basophils % (auto) 0.1 % (0.0-2.0); Eosinophils # (auto) 0 10 ^3/uL (0-0.8); Hematocrit 35.2 % (36.0-46.0); Hemoglobin 11.2 g/dL (12.2-16.2); Lymphocytes # (auto) 0.3 10 ^3/uL (0.4-5.4); Lymphocytes % (auto) 1.3 % (10.0-50.0); Mean Corpuscular Hemoglobin 29.9 pg (28.0-32.0); Mean Corpuscular Hgb Conc. 31.8 g/dL (32.0-36.0); Monocytes # (auto) 0.3 10 ^3/uL (0-1.3); Monocytes % (auto) 1.4 % (0.0-12.0); Neutrophils # (auto) 21.9 10 ^3/uL (1.6-8.6); Neutrophils % (auto) 97.2 % (37.0-80.0); Red Blood Cells 3.74 10^6/uL (4.0-5.20); Red Cell Distribution Width 16.1 % (11.8-14.3); White Blood Cell 22.6 10^3/uL (4.4-10.8)
[2021-05-02] MEDS: ACCU-CHEK COMFORT CURVE STRIP VI SCH ×4 (06:12→22:30)
[2021-05-02] MEDS: InsuLIN REG 1unit/0.01ml Soln (100units/ml) SC SCH ×4 (06:19→22:31)
[2021-05-02 09:00] VITALS: BP 136/68
[2021-05-02] MEDS: PANTOPRAZOLE 40 MG/10 ML VIAL INJ IV SCH (09:20)
[2021-05-02] MEDS: predniSONE 20 MG TAB PO SCH (09:21)
[2021-05-02] MEDS: CARVEDILOL 12.5 MG TAB PO SCH ×2 (09:21→22:30)
[2021-05-02] MEDS ORDERED: cefTRIAXone 1GM/50ML D5W 50 ML IV ONE (11:30)
[2021-05-02 13:00] VITALS: BP 142/65
[2021-05-02 17:00] VITALS: BP 151/62
[2021-05-02 22:00] VITALS: BP 143/56
[2021-05-03 05:13] VITALS: BP 163/61
[2021-05-03] MEDS: ACCU-CHEK COMFORT CURVE STRIP VI SCH ×4 (06:33→21:50)
[2021-05-03] MEDS: InsuLIN REG 1unit/0.01ml Soln (100units/ml) SC SCH ×4 (06:35→21:51)
[2021-05-03] MEDS: cefTRIAXone 1GM/50ML D5W 50 ML IV SCH (08:38)
[2021-05-03 09:00] VITALS: BP 150/64
[2021-05-03] MEDS: predniSONE 20 MG TAB PO SCH (09:46)
[2021-05-03] MEDS: PANTOPRAZOLE 40 MG/10 ML VIAL INJ IV SCH (09:51)
[2021-05-03] MEDS: CARVEDILOL 12.5 MG TAB PO SCH ×2 (09:51→21:50)
[2021-05-03 12:38] VITALS: BP 134/63
[2021-05-03 17:00] VITALS: BP 132/64
[2021-05-03 22:00] VITALS: BP 139/62
[2021-05-04 04:47] VITALS: BP 152/62
[2021-05-04] MEDS: ACCU-CHEK COMFORT CURVE STRIP VI SCH ×3 (06:11→22:37)
[2021-05-04] MEDS: InsuLIN REG 1unit/0.01ml Soln (100units/ml) SC SCH ×4 (06:17→22:38)
[2021-05-04 08:46] VITALS: BP 126/46
[2021-05-04] MEDS: cefTRIAXone 1GM/50ML D5W 50 ML IV SCH (09:28)
[2021-05-04] MEDS: CARVEDILOL 12.5 MG TAB PO SCH ×2 (09:29→22:37)
[2021-05-04] MEDS: PANTOPRAZOLE 40 MG/10 ML VIAL INJ IV SCH (09:29)
[2021-05-04] MEDS: predniSONE 20 MG TAB PO SCH (09:30)
[2021-05-04] MEDS ORDERED: IOHEXOL 350 MG/ML 100ML IJ ONE (10:47)
[2021-05-04 13:00] VITALS: BP 168/76
[2021-05-04 14:05] LABS: Basophils # (auto) 0 10 ^3/uL (0-0.2); Eosinophils # (auto) 0 10 ^3/uL (0-0.8); Eosinophils % (auto) 0.2 % (0.0-7.0); Hematocrit 37.4 % (36.0-46.0); Hemoglobin 11.9 g/dL (12.2-16.2); Lymphocytes # (auto) 0.4 10 ^3/uL (0.4-5.4); Lymphocytes % (auto) 1.5 % (10.0-50.0); Mean Corpuscular Hemoglobin 29.8 pg (28.0-32.0); Mean Corpuscular Hgb Conc. 31.9 g/dL (32.0-36.0); Mean Corpuscular Volume 93.3 fL (80.0-100.0); Monocytes # (auto) 0.5 10 ^3/uL (0-1.3); Neutrophils # (auto) 24.1 10 ^3/uL (1.6-8.6); Neutrophils % (auto) 96.3 % (37.0-80.0); Red Blood Cells 4.01 10^6/uL (4.0-5.20); Red Cell Distribution Width 15.7 % (11.8-14.3); White Blood Cell 25.1 10^3/uL (4.4-10.8)
[2021-05-04 17:00] VITALS: BP 120/65
[2021-05-04 20:00] VITALS: BP 120/56
[2021-05-05] MEDS: ACCU-CHEK COMFORT CURVE STRIP VI SCH ×5 (01:35→22:00)
[2021-05-05 05:00] VITALS: BP 120/56
[2021-05-05] MEDS: InsuLIN REG 1unit/0.01ml Soln (100units/ml) SC SCH ×3 (06:39→17:19)
[2021-05-05] MEDS: traMADol HCL 50 MG TAB PO PRN (06:42)
[2021-05-05 09:00] VITALS: BP 113/41
[2021-05-05] MEDS: predniSONE 20 MG TAB PO SCH (09:25)
[2021-05-05] MEDS: PANTOPRAZOLE 40 MG/10 ML VIAL INJ IV SCH (09:25)
[2021-05-05] MEDS: cefTRIAXone 1GM/50ML D5W 50 ML IV SCH (09:30)
[2021-05-05] MEDS: CARVEDILOL 12.5 MG TAB PO SCH (10:00)
[2021-05-05] MEDS ORDERED: SODIUM CHL 0.9% 1000 ML BAG XX ONE (11:45)
[2021-05-05 13:00] VITALS: BP 111/41
[2021-05-05 17:00] VITALS: BP 103/41
[2021-05-05 22:00] VITALS: BP 114/43
[2021-05-06] MEDS: CARVEDILOL 12.5 MG TAB PO SCH ×2 (00:14→10:00)
[2021-05-06 05:00] VITALS: BP 121/47
[2021-05-06] MEDS ORDERED: methylPREDNISolone SOD SUCC 125 MG/2 ML VL IV ONE (06:15)
[2021-05-06] MEDS ORDERED: diphenhdrAMINE HCL 50 MG/1 ML VL IV ONE (06:15)
[2021-05-06] MEDS: ACCU-CHEK COMFORT CURVE STRIP VI SCH ×2 (06:37→11:30)
[2021-05-06] MEDS: InsuLIN REG 1unit/0.01ml Soln (100units/ml) SC SCH ×3 (06:39→13:06)
[2021-05-06 09:00] VITALS: BP 134/49
[2021-05-06] MEDS: cefTRIAXone 1GM/50ML D5W 50 ML IV SCH (09:07)
[2021-05-06] MEDS: PANTOPRAZOLE 40 MG/10 ML VIAL INJ IV SCH (09:07)
[2021-05-06] MEDS: predniSONE 20 MG TAB PO SCH (10:00)
[2021-05-06] MEDS ORDERED: INSULIN LISPRO (HUMAN) 100 UNITS/ML ML SC ONE (10:30)
[2021-05-06 13:00] VITALS: BP 147/53
[2021-05-06 17:00] VITALS: BP 141/51
== END 2021-05-06 17:30 | disposition hospice, home (50) | DRG 871 ==
LOC: ER 16:46 → TELE 04-23 01:03 → TELE-WESTW 04-23 20:35 → CATH ICU 04-24 16:17 → TELE-WESTW 04-28 16:53 → TELE-CENTR 05-01 16:50
PROVIDERS: ADMIT Nurse Practitioner; ATTEND Internal Medicine
PROC: 5A1945Z Respiratory Ventilation, 24-96 Consecutive Hours (ICD-10-PCS; principal; 2021-04-24)
PROC: 0BH17EZ Insertion of Endotracheal Airway into Trachea, Via Natural or Artificial Opening (ICD-10-PCS; 2021-04-24)
PROC: 0W9D3ZZ Drainage of Pericardial Cavity, Percutaneous Approach (ICD-10-PCS; 2021-04-24)
PROC: 5A12012 Performance of Cardiac Output, Single, Manual (ICD-10-PCS; 2021-04-24)
PROC: 30233N1 Transfusion of Nonautologous Red Blood Cells into Peripheral Vein, Percutaneous Approach (ICD-10-PCS; 2021-04-24)
PROC: 5A1D70Z Performance of Urinary Filtration, Intermittent, Less than 6 Hours Per Day (ICD-10-PCS; 2021-04-27)
PROC: 5A1D70Z Performance of Urinary Filtration, Intermittent, Less than 6 Hours Per Day (ICD-10-PCS; 2021-04-29)
PROC: 5A1D70Z Performance of Urinary Filtration, Intermittent, Less than 6 Hours Per Day (ICD-10-PCS; 2021-05-01)
PROC: 5A1D70Z Performance of Urinary Filtration, Intermittent, Less than 6 Hours Per Day (ICD-10-PCS; 2021-05-05)
DX: A41.9 Sepsis, unspecified organism (principal); J96.20 Acute and chronic respiratory failure, unspecified whether with hypoxia or hypercapnia; N18.6 End stage renal disease; I46.9 Cardiac arrest, cause unspecified; I26.99 Other pulmonary embolism without acute cor pulmonale; J18.9 Pneumonia, unspecified organism; I50.23 Acute on chronic systolic (congestive) heart failure; I31.3 Pericardial effusion (noninflammatory); E44.0 Moderate protein-calorie malnutrition; I25.3 Aneurysm of heart; I31.4 Cardiac tamponade; Z68.1 Body mass index [BMI] 19.9 or less, adult; I13.2 Hypertensive heart and chronic kidney disease with heart failure and with stage 5 chronic kidney disease, or end stage renal disease; Z20.822 Contact with and (suspected) exposure to COVID-19; D63.1 Anemia in chronic kidney disease; E11.65 Type 2 diabetes mellitus with hyperglycemia; L89.90 Pressure ulcer of unspecified site, unspecified stage; E11.22 Type 2 diabetes mellitus with diabetic chronic kidney disease; I25.10 Atherosclerotic heart disease of native coronary artery without angina pectoris; Z88.2 Allergy status to sulfonamides; I25.2 Old myocardial infarction; Z99.2 Dependence on renal dialysis; Z99.81 Dependence on supplemental oxygen; Z88.5 Allergy status to narcotic agent; Z90.49 Acquired absence of other specified parts of digestive tract; Z86.73 Personal history of transient ischemic attack (TIA), and cerebral infarction without residual deficits; Z83.3 Family history of diabetes mellitus; Z82.49 Family history of ischemic heart disease and other diseases of the circulatory system
CPT/HCPCS: 33016; 36415; 36600; 71045; 71260; 74176; 74177; 80048; 80053; 80202; 82728; 82805; 82962; 83036; 83540; 83550; 83690; 83735; 83880; 84439; 84443; 84484; 84550; 85007; 85014; 85018; 85025; 85027; 85610; 85730; 86141; 86850; 86900; 86901; 86920; 87040; 87205; 87340; 87426; 90935; 93005; 93306; 94002; 94003; 96374; 97110; 97116; 97163; 97530; 99152; 99153; A4565; C9113; G0378; J0696; J1642; J1815; J2250; J2543; P9047